=== PATIENT | female | born 1940 | race Caucasian/White ===

== ENCOUNTER 2024-05-08 15:34 | Emergency (ER) | payer MEDICARE, BC, SELFPAY ==
[2024-05-08] VITALS (25 sets, daily range): BP systolic 130–164; BP diastolic 57–99; PULSE 63–83; RESP 14–16; TEMP 36.8; O2SAT 92–97; BMI 34.7
--- NOTE | 2024-05-08 15:55 | ED_ITS ---
HPI - General Adult General Time Seen by Provider: 15:55 Date Seen: 05/08/24 Chief complaint: Dizziness/Vertigo Stated complaint: dizzy and nauseous, thinks she has vertigo. Time Seen by Provider: 05/08/24 15:38 Source: patient and RN notes reviewed Mode of arrival: ambulatory Limitations: no limitations History of Present Illness HPI narrative: This 83-year-old female is coming in with ongoing vertigo. She has had symptoms since this last Saturday, today is Saturday. She went to [place] [facility] on Saturday. She states they diagnosed with dehydration, give her IV fluids, did blood work and did an EKG. She states they did not do any head imaging. She notes that 07/09/2023 she was in with vertigo as well, had head imaging then. She did follow up with her primary care on Saturday, physical therapy request was put in but she has not been able to attend. She states she is taking meclizine since Saturday 3 times a day scheduled. She still has ongoing nausea, she has spinning with movement. She has not been sick with anything, no trauma. She baseline has ringing in her ears but has not changed. No cough or cold symptoms, no fevers or chills. No chest pain or irregular heartbeat noted. No other neurologic changes with this. She does note after eating she did feel nauseated. She is still experiencing the spinning or dizziness with movement. She feels the meclizine has helped but it is still present. She states her doctor took her off hydrochlorothiazide, put her on losartan and had her take Claritin. Related Data Home Medications ?Medication ?Instructions ?Recorded ?Confirmed amlodipine 5 mg tablet 5 mg PO DAILY 05/08/24 05/08/24 aspirin 81 mg tablet,delayed 81 mg PO DAILY 05/08/24 05/08/24 release atorvastatin 20 mg tablet 20 mg PO DAILY 05/08/24 05/08/24 citalopram 10 mg tablet (Celexa) 10 mg PO DAILY 05/08/24 05/08/24 loratadine-pseudoephedrine ER 10 1 tab PO DAILY 05/08/24 05/08/24 mg-240 mg tablet,extended [id number] (AllerClear D-24hr) losartan 25 mg tablet 25 mg PO DAILY 05/08/24 05/08/24 potassium 20 mg chewable tablet mg PO 05/08/24 ramipril 10 mg capsule 10 mg PO DAILY 05/08/24 05/08/24 Previous Rx's ?Medication ?Instructions ?Recorded diazepam 2 mg tablet (Valium) 2 mg PO TID #9 tabs 05/08/24 Allergies Allergy/AdvReac Type Severity Reaction Status Date / Time latex Allergy Mild Verified 05/08/24 15:52 Penicillins Allergy Mild Verified 05/08/24 15:52 Review of Systems Status of ROS: Reports: 6 or more systems reviewed and unremarkable except as noted in History and below [facility] Social History Smoking Status: Former smoker What tobacco products do you use: cigarettes Smoking packs per day: 0.5 Smoking cigarettes per day: 10.0 Years smoked: 20 Smoking pack-years: 10.00 Smoking quit date/years: >15 years ago Do you use any of these nicotine containing products: None Second hand tobacco smoke exposure: No How often do you have a drink containing alcohol: never AUDIT-C Alcohol total score: 0 Non-prescribed substance use: denies use service: No Exam Const: Vital Signs, click to edit/add: Vital Signs - 24 hr 05/08/24 15:41 05/08/24 16:03 Temperature 98.3 F Pulse Rate [Pulse Oximeter] 80 Respiratory Rate 14 Blood Pressure [Le ft Upper Arm] 164/81 H Pulse Oximetry 95 97 This 83-year-old female is alert, interactive, no apparent distress. She is seen in exam room 8, sitting up in the bed. Pupils are equal round reactive, extraocular muscles intact but there is definite right beating nystagmus. TMs canals with normal landmarks, light reflects, normal translucency, no abnormalities noted. Symmetrical facial function, speech is normal. Neck supple, no adenopathy, no jugular venous distension, no thyromegaly masses or nodules. Lungs are clear, breathing easy on room air, no wheezing or crackles. CV regular rate and rhythm, no murmur, normal S1-S2, no S3-S4. Abdomen is soft, nontender, nondistended, no organomegaly. Strength is 5/5 and symmetric, no tremors, no arm drift. Sensation is normal throughout. Documenting provider has reviewed patient's vital signs: yes Course Course ED Course: As a cannot see any records on this patient, I am going to do noncontrast head CT. Will put an IV in, draw electrolytes and basic blood work including thyroid. Again, I cannot see if her thyroid is been tested recently. Will check labs, have her on cardiac monitoring, pulse oximetry. Will get an EKG as well. Doubt arrhythmia. The seems like it is vertigo but not just benign po sitional vertigo. Once we have some of our labs back and head CT, will likely talk to Stroke Neuro at [facility]. Reevaluation(s) Time of Reevaluation #1: 19:36 Reevaluation #1: The patient was up to the bathroom with walker, felt absolutely fine walking, did not feel to woozy or unsteady. She actually does feel better. She was wondering about staying in the hospital. Reviewed with her that this is likely a longer-term vestibular issue and she may have this for days, possibly even weeks. She did ambulate quite well to the bathroom, there was no concerns and she herself admits that she felt good, do think it is reasonable for her to try to go home. The Valium is not bothering her. Consultations Consultation #1: Have spoken with stroke neurologist Dr. Ardon from [facility]. We have reviewed the case. She agrees that the nystagmus does seem to be a peripheral pattern and given the length would be something like vestibulitis. She does agree that she would consider doing an MRI if the patient has never had one but does not need to be urgent given the length of symptoms. She agrees with a trial of some oral Valium as it would be much more effective in treating this than meclizine. She would have me do CT angio imaging just to ensure no vessel loss with this. She otherwise would agree that the patient does need outpatient physical therapy. Will review with the patient that were going to do CT angio imaging, will try low-dose oral Valium at 2.5 mg if she is willing. Will talk to the patient now. Time: 17:36 Vital Signs Vital signs: Initial Vital Signs Temperature 98.3 F 05/08/24 15:41 Temperature Source Temporal Artery Scan 05/08/24 15:41 Pulse Rate 80 05/08/24 15:41 Respiratory Rate 14 05/08/24 15:41 Blood Pressure 164/81 H 05/08/24 15:41 Blood Pressure Mean 108 H 05/08/24 15:41 Blood Pressure Position Sitting 05/08/24 15:41 Pulse Oximetry 95 05/08/24 15:41 Vital Signs Temperature 98.3 F 05/08/24 15:41 Pulse Rate 80 05/08/24 15:41 Respiratory Rate 14 05/08/24 15:41 Blood Pressure 164/81 H 05/08/24 15:41 Pulse Oximetry 95 05/08/24 15:41 Temperature 98.3 F 05/08/24 15:41 Pulse Rate 80 05/08/24 15:41 Respiratory Rate 14 05/08/24 15:41 Blood Pressure 164/81 H 05/08/24 15:41 Pulse Oximetry 97 05/08/24 16:03 Medications Administered Medications: Discontinued Medications Generic Name Dose Route Start Last Admin Trade Name Keo PRN Reason Stop Dose Admin Diazepam 2.5 mg 05/08/24 17:49 05/08/24 18:02 Diazepam 5 Mg Tablet PO 05/08/24 17:50 2.5 mg ONCE ONE Administration Sodium Chloride 500 mls @ 500 mls/hr 05/08/24 16:02 05/08/24 18:03 0.9 % Sodium Chloride 500 Ml IV 05/08/24 17:01 500 mls/hr .Q1H ONE Administration Medical Decision Making Medical Records Medical records narrative: Did attempt to look patient up in [facility] but there are no records available on her. Lab Data Lab results reviewed: Yes I reviewed the patient's lab results Labs: Lab Results 05/08/24 Range/Units 16:10 WBC 8.17 (4.50-11.00) K/uL RBC 5.00 (4.00-5.20) m/uL Hgb 14.6 (12.0-16.0) gm/dL Hct 43.2 (33.0-51.0) % MCV 86 (80-100) fL MCH 29 (26-34) pg MCHC 34 (32-36) gm/dL RDW Coeff of Darlene 12.9 (11.5-15.5) % Plt Count 309 (140-440) K/uL Neut % (Auto) 61.0 (42.0-72.0) % Lymph % (Auto) 29.0 (20-44) % Evangeline % (Auto) 8.2 (0.0-11.0) % Eos % (Auto) 1.3 (0.0-7.0) % Baso % (Auto) 0.4 (0.0-3.0) % Neut # (Auto) 4.98 (1.7-7.0) K/uL Lymph # (Auto) 2.37 (0.90-2.90) K/uL Evangeline # (Auto) 0.70 (0.00-0.90) K/UL Eos # (Auto) 0.11 (0.00-0.50) K/uL Baso # (Auto) 0.03 (0.00-0.30) K/uL Abs Immat Gran (auto) 0.01 (0.00-0.30) K/uL Imm/Tot Granulo (auto) 0.1 % Sodium 133 L (135-149) mmol/L Potassium 4.0 (3.6-5.1) mmol/L Chloride 98 (96-114) mmol/L Carbon Dioxide 27 (20-32) mmol/L Anion Gap 8 (7-15) mEq/L BUN 14 (7-30) mg/dL Creatinine 0.8 (0.5-1.5) mg/dL Estimated Creat Clear 36.81 Estimated GFR 73 ml/min Glucose 103 (60-115) mg/dL Calcium 9.8 (8.4-10.6) mg/dL Magnesium 2.1 (1.5-2.6) mg/dL Total Bilirubin 0.7 (0.1-1.5) mg/dL AST 20 (12-35) U/L ALT 19 (4-35) U/L Alkaline Phosphatase 84 (40-150) U/L Total Protein 7.4 (6.0-8.3) g/dL Albumin 4.6 (3.3-5.0) g/dL TSH 3.160 (0.270-4.200) uIU/mL Imaging Data CT scan - head: Attestation: I have reviewed the pertinent imaging results. Radiologist's impression: Patient: ANISHA AGUIRRE Facility:?[facility] Patient ID:?[id number] Site Patient ID:?[id number]. Site :?[id number] Study:?CT-Head WITHOUT-05/08/2024 4:30:39 PM Ordering Physician:?Ezequiel Danielson Final Report: INDICATION: VERTIGO FOR 5 DAYS COMPARISON: None TECHNIQUE: CT of the head without contrast. FINDINGS: Brain Parenchyma: Global cortical involutional changes. No acute infarct, acute intracranial hemorrhage, mass effect, or midline shift. Periventricular and supraventricular white matter hypodensity, suggestive of chronic microvascular ischemic changes. Ventricles: Mild ventricular enlargement, commensurate with the degree of cortical involutional changes and sulcal prominence. Extra-axial Spaces: No abnormal fluid collection. Paranasal sinuses: No significant mucosal thickening. Orbits: Unremarkable Mastoid Sinuses: Unremarkable Cranium: No acute fracture. 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 Please note that all CT scans at this facility use dose modulation, iterative reconstruction, and/or weight-based dosing when appropriate to reduce radiation dose to as low as reasonably achievable. Dictated by Hugo Ferro MD @ 05/08/2024 4:52:43 PM (Electronic Signature) CT- Other: Attestation: I have reviewed the pertinent imaging results. Radiologist's impression: Patient: ANISHA AGUIRRE Facility:?[facility] Patient ID:?[id number] Site Patient ID:?[id number]. Site :?[id number] Study:?CT-Neck Angio w/iv-05/08/2024 6:31:01 PM Ordering Physician:?Ezequiel Danielson Preliminary Report: No large vessel occlusion, significant arterial stenosis, or intracranial aneurysm. Read by:Arianna Suazo MD @05/08/2024 6:50:38 PM Patient: ANISHA AGUIRRE Facility:?[facility] Patient ID:?[id number] Site Patient ID:?[id number]. Site :?[id number] Study:?CT-Head Angio w/iv-05/08/2024 6:31:24 PM Ordering Physician:?Ezequiel Danielson Preliminary Report: CTA Head: No large vessel occlusion, significant arterial stenosis, or intracranial aneurysm. CTA neck: No arterial dissection. Atherosclerotic calcification at the carotid bifurcations with mild <50% of the left proximal ICA. Two 6mm left upper lobe pulmonary nodules. Per Fleischner criteria, 12 month follow up of patient is high risk. 1.6 cm right thyroid nodule. Recommend further ultrasound characterization if not already performed. Read by:?Bola Suazo MD @05/08/2024 6:53:56 PM ECG Data Attestation: I personally reviewed and interpreted this ECG as follows: (Normal sinus rhythm with sinus arrhythmia, 64 beats per minute. Right bundle branch b lock. Lateral Q-waves without any acute ST or T-wave change.) Prior ECG tracings: not available for review Discharge Plan Discharge Clinical Impression: Acute vestibular neuronitis Qualifiers: Laterality: right Qualified Code(s): H81.21 - Vestibular neuronitis, right ear Patient Disposition: Home, Self-Care Condition: Stable Instructions: Vertigo (ED) Additional Instructions: Do need to complete your vestibular physical therapy as scheduled prior. Can use meclizine overnight tonight if needed until you get the Valium from the pharmacy. Do need to follow-up with your primary care provider next week. It was recommended by Neurology if you have not had an MRI sent you started with the vertigo, it is recommended that you have a brain MRI noncontrast. This is just to ensure no underlying problems in the brain causing the vertigo. Your exam and history is consistent with peripheral vertigo but not just benign positional vertigo. Activity Level: Activity as Tolerated Prescriptions: New diazepam [Valium] 2 mg tablet 2 mg PO TID Qty: 9 0RF No Action AllerClear D-24hr 10-240 mg tablet extended release 24 hr 1 tab PO DAILY losartan 25 mg tablet 25 mg PO DAILY aspirin 81 mg tablet,delayed release (DR/EC) 81 mg PO DAILY potassium 20 mg tablet,chewable PO atorvastatin 20 mg tablet 20 mg PO DAILY citalopram [Celexa] 10 mg tablet 10 mg PO DAILY amlodipine 5 mg tablet 5 mg PO DAILY ramipril 10 mg capsule 10 mg PO DAILY Follow Up/Referrals: Provider,Not a Local [Non-Staff] - Stand Alone Forms: [facility] Info Instructions
--- NOTE | 2024-05-08 16:08 | CRLHL7_ITS ---
For Patients: As a result of the Cures Act, medical imaging exams and procedure reports are released immediately into your electronic medical record. You may view this report before your referring provider. If you have questions, please contact your health care provider. INDICATION: VERTIGO FOR 5 DAYS COMPARISON: None TECHNIQUE: CT of the head without contrast. FINDINGS: Brain Parenchyma: Global cortical involutional changes. No acute infarct, acute intracranial hemorrhage, mass effect, or midline shift. Periventricular and supraventricular white matter hypodensity, suggestive of chronic microvascular ischemic changes. Ventricles: Mild ventricular enlargement, commensurate with the degree of cortical involutional changes and sulcal prominence. Extra-axial Spaces: No abnormal fluid collection. Paranasal sinuses: No significant mucosal thickening. Orbits: Unremarkable Mastoid Sinuses: Unremarkable Cranium: No acute fracture. 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 Please note that all CT scans at this facility use dose modulation, iterative reconstruction, and/or weight-based dosing when appropriate to reduce radiation dose to as low as reasonably achievable. Dictated by Hugo Ferro MD @ 05/08/2024 4:52:43 PM (Electronically Signed)
[2024-05-08 16:20] LABS: Basophils Absolute Auto 0.03 K/uL (0.00-0.30); Basophils Percent Auto 0.4 % (0.0-3.0); Eosinophils Absolute Auto 0.11 K/uL (0.00-0.50); Eosinophils Percent Auto 1.3 % (0.0-7.0); Hematocrit 43.2 % (33.0-51.0); Hemoglobin* 14.6 gm/dL (12.0-16.0); Immature Granulocytes Abs Auto 0.01 K/uL (0.00-0.30); Immature Granulocytes Pct Auto 0.1 %; Lymphocytes Absolute Auto 2.37 K/uL (0.90-2.90); Mean Corpuscular HGB Conc 34 gm/dL (32-36); Mean Corpuscular Hemoglobin 29 pg (26-34); Mean Corpuscular Volume 86 fL (80-100); Monocytes Percent Auto 8.2 % (0.0-11.0); Neutrophils Absolute Auto 4.98 K/uL (1.7-7.0); Platelet Count* 309 K/uL (140-440); RDW Coefficient of Variation % 12.9 % (11.5-15.5); White Blood Count* 8.17 K/uL (4.50-11.00)
--- OUTSIDE RECORDS SUMMARY | 2024-05-08 16:27 | XMS_ITS | Encounter Summary ---
Author Organization [facility] er Address [address] [place] [address] Care Team Providers Care Internet Marketer Name Role Phone Freda Rollins APRN Primary Care Provider Encounter Details Date Type Department Care Team (Late st Contact Info) Description 08/20/2023 Telephone [facility] 52 Sleep Medicine [address] [address] Lee Diaz MD Social History Tobacco Use Types Packs/Day Years Used Date Smoking Tobacco: Former Smokeless Tobacco: Never Alcohol Use Standard Drinks/Week Comments Yes 7 (1 standard drink = 0.6 oz pur e alcohol) Humiliation, Afraid, Rape, and Kick questionnair e Answer Date Recorded Within the last year, have y ou been afraid of your partner or ex-partner? No 10/14/2022 Within the last year, have y ou been humiliated or emotionally abused in other ways by your partner or ex-partner? No Within the last year, have y ou been kicked, hit, slapped, or otherwise physically hurt by your partner or ex-partner? No 10/14/2022 Within the last year, have y ou been raped or forced to have any kind of sexual activity by your partner or ex-partner? No 10/14/2022 Social Connection and Isolat ion Panel [NHANES] Answer Date Recorded In a typical week, how many times do you talk on the phone with family, friends, or neighbors? More than three times a week 10/14/2022 How often do you get togethe r with friends or relatives? Twice a week 10/14/2022 How often do you attend chur ch or sikh services? More than 4 times per year 10/14/2022 Do you belong to any clubs o r organizations such as jewish groups, unions, fraternal or athletic groups, or school groups? No 10/14/2022 Attends Club or Organization Meetings Not on jorge e 10/14/2022 Are you , , di vorced, , never , or living with a partner? 10/14/2022 AUDIT-C Answer Date Recorded Frequency of Alcohol Consumption Not on file 10/14/2022 Q2: How many drinks containi ng alcohol do you have on a typical day when you are drinking? 1 or 2 10/14/2022 Q3: How often do you have si x or more drinks on one occasion? Never 10/14/2022 Overall Financial Resource Strain (CARDIA) Answe r Date Recorded How hard is it for you to pa y for the very basics like food, housing, medical care, and heating? Not hard at all 10/14/2022 PHQ-2 Answer Date Recorded PHQ-9 Total Score 2 10/14/2022 [facility] - Occupational Stress Questionnaire Answer Date Recorded Do you feel stress - tense, restless, nervous, or anxious, or unable to sleep at night because your mind is troubled all the time - these days? Only a little 10/14/2022 Exercise Vital Sign Answer Date Recorde d On average, how many days pe r week do you engage in moderate to strenuous exercise (like a brisk walk)? 0 days 10/14/2022 On average, how many minutes do you engage in exercise at this level? 0 min 10/14/2022 Hunger Vital Sign Answer Date Recorded Within the past 12 months, y ou worried that your food would run out before you got the money to buy more. Never true 10/15/19 23 Within the past 12 months, t he food you bought just didn't last and you didn't have money to get more. Never true 10/14/2022 PRAPARE - Transportation Answer Date Re corded In the past 12 months, has l ack of transportation kept you from medical appointments or from getting medications? No 09/29 In the past 12 months, has l ack of transportation kept you from meetings, work, or from getting things needed for daily living? No 10/14/2022 Housing Stability Vital Sign Answer Byron e Recorded In the last 12 months, was t here a time when you were not able to pay the mortgage or rent on time? No 10/14/2022 In the last 12 months, how many places have you lived? 2 10/14/2022 In the last 12 months, was t here a time when you did not have a steady place to sleep or slept in a m[facility]p (including now)? No 10/14/2022 Comments Unknown Sex and Gender Information Value Date Recorded Sex Assigned at Not on file Legal Sex Female 7:46 PM CDT Gender Identity Not on file Sexual Orientation Not on file documented as of this encounter Miscellaneous Notes * Telephone Encounter - Carmen Sandra MA - 08/21/2023 4:19 PM CDT Called and spoke to patient remotely changed setting to 10-20 cm of water , ramp on auto and EPR 3 * Telephone Encounter - Lee Diaz MD - 08/20/2023 4:00 PM CDT Please change the pressure to auto CPAP 10-20 with automatic ramp and EPR of 3, please obtain download in 2 weeks from now. * Telephone Encounter - Carmen Sandra MA - 08/20/2023 2:58 PM CDT There is document on desk for relating to this message order has been pended for in case you would like to change Pressure setting. documented in this encounter Plan of Treatment Upcoming Encounters Date Type Department Care Team (Late st Contact Info) Description 05/14/2024 10:40 AM FORGING DIE FINISHER Office Visit [place] [address] [facility] [address] [place] [address] Jose Villagran MD [address] [place] [address] documented as of this encounter Visit Diagnoses Not on filedocumented in this encounter Care Teams Internet Marketer Relationship Specialty Start Date End Date Freda Rollins, VETERINARIAN ASSISTANT [address] [place] [id number] PCP - General 01/17/23 documented as of this encounter
--- OUTSIDE RECORDS SUMMARY | 2024-05-08 16:27 | XMS_ITS | Encounter Summary ---
Author Organization [facility] er Address [address] [place] [address] Care Team Providers Care Produce Weigher Name Role Phone Freda Rollins APRN Primary Care Provider Reason for Visit * Reason Onset Date Comments FYI - Order 03/16/2024 Encounter Details Date Type Department Care Team (Late st Contact Info) Description 03/16/2024 Telephone [place] [address] [place] [address] Freda Rollins PROJECT MANAGER FINANCE [address] [place] [id number] FYI - Order Social History Tobacco Use Types Packs/Day Years Used Date Smoking Tobacco: Former Smokeless Tobacco: Never Alcohol Use Standard Drinks/Week Comments Yes 7 (1 standard drink = 0.6 oz pur e alcohol) B1300 Health Literacy Answer Date Recor ded How often do you need to hav e someone help you when you read instructions, pamphlets, or other written material from your doctor or pharmacy? Rarely 04/08/2024 [facility] Utilities Answer Date Recorded In the past 12 months has e electric, gas, oil, or water company threatened to shut off services in your home? No 04/08/2024 Humiliation, Afraid, Rape, and Kick questionnair e Answer Date Recorded Within the last year, have y ou been afraid of your partner or ex-partner? No 04/08/2024 Within the last year, have y ou been humiliated or emotionally abused in other ways by your partner or ex-partner? No Within the last year, have y ou been kicked, hit, slapped, or otherwise physically hurt by your partner or ex-partner? No 04/08/2024 Within the last year, have y ou been raped or forced to have any kind of sexual activity by your partner or ex-partner? No 04/08/2024 Social Connection and Isolat ion Panel [NHANES] Answer Date Recorded In a typical week, how many times do you talk on the phone with family, friends, or neighbors? More than three times a week 04/08/2024 How often do you get togethe r with friends or relatives? Twice a week 04/08/2024 How often do you attend [facility] or nondenominational services? More than 4 times per year 04/08/2024 Do you belong to any clubs o r organizations such as confucianism groups, unions, fraternal or athletic groups, or school groups? No 04/08/2024 How often do you attend meet ings of the clubs or organizations you belong to? Never 04/08/2024 Are you , , di vorced, , never , or living with a partner? 04/08/2024 AUDIT-C Answer Date Recorded Q1: How often do you have a drink containing alc ohol? Monthly or less 04/08/2024 Q2: How many drinks containi ng alcohol do you have on a typical day when you are drinking? 1 or 2 04/08/2024 Q3: How often do you have si x or more drinks on one occasion? Never 04/08/2024 Overall Financial Resource Strain (CARDIA) Answe r Date Recorded How hard is it for you to pa y for the very basics like food, housing, medical care, and heating? Not very hard 04/08/2024 PHQ-2 Answer Date Recorded PHQ-9 Total Score 0 04/08/2024 [facility] [place] [facility] Occup[facility] - Occupational Stress Questionnaire Answer Date Recorded Do you feel stress - tense, restless, nervous, or anxious, or unable to sleep at night because your mind is troubled all the time - these days? Only a little 04/08/2024 Exercise Vital Sign Answer Date Recorde d On average, how many days pe r week do you engage in moderate to strenuous exercise (like a brisk walk)? 0 days 04/08/2024 On average, how many minutes do you engage in exercise at this level? 0 min 04/08/2024 Hunger Vital Sign Answer Date Recorded Within the past 12 months, y ou worried that your food would run out before you got the money to buy more. Never true 04/08/19 25 Within the past 12 months, t he food you bought just didn't last and you didn't have money to get more. Never true 04/08/2024 PRAPARE - Transportation Answer Date Re corded In the past 12 months, has l ack of transportation kept you from medical appointments or from getting medications? No 10/2024 In the past 12 months, has l ack of transportation kept you from meetings, work, or from getting things needed for daily living? No 04/08/2024 Housing Stability Vital Sign Answer Byron e [...] place to sleep or slept in a penitentiary (including now)? No 10/14/2022 Housing Stability Vital Sign Answer Byron e Recorded In the last 12 months, was t here a time when you were not able to pay the mortgage or rent on time? No 04/08/2024 In the past 12 months, how m any times have you moved where you were living? 0 04/08/2024 At any time in the past 12 m [facility], were you homeless or living in a penitentiary (including now)? No 04/08/2024 Interpersonal Safety Questionnaire Answer Date Recorded How often does anyone, annette marie family and friends, physically hurt you? Never 04/08/2024 How often does anyone, annette marie family and friends, insult or talk down to you? Never 04/08/2024 How often does anyone, annette marie family and friends, threaten you with harm? Never 04/08/2024 How often does anyone, inclu ding family and friends, threaten you with harm? Never 04/08/2024 Comments Unknown Sex and Gender Information Value Date Recorded Sex Assigned at Not on file Legal Sex Female 7:46 PM CDT Gender Identity Not on file Sexual Orientation Not on file documented as of this encounter Miscellaneous Notes * Telephone Encounter - Hannah Foley - 03/16/2024 4:04 PM CST Faxed order to [facility] in [place]. [phone] METER REPAIR SUPERVISOR documented in this encounter Plan of Treatment Upcoming Encounters Date Type Department Care Team (Late st Contact Info) Description 05/14/2024 10:40 AM GAS METER REPAIR SUPERVISOR Office Visit [place] [address] [facility] [address] [place] [address] Jose Villagran MD [address] [place] [phone] documented as of this encounter Visit Diagnoses Not on filedocumented in this encounter Care Teams Produce Weigher Relationship Specialty Start Date End Date Freda Rollins APRN [address] [place] [phone] PCP - General 01/17/23 documented as of this encounter
--- OUTSIDE RECORDS SUMMARY | 2024-05-08 16:27 | XMS_ITS | Encounter Summary ---
Author Organization [facility] er Address [address] [place] [address] Care Team Providers Care Bookmobile Librarian Name Role Phone Freda Rollins APRN Primary Care Provider Encounter Details Date Type Department Care Team (Late st Contact Info) Description 04/21/2024 Orders Only [place] [address] [place] [address] Ivelisse Rea RN [address] [place] [address] Dizziness; RBBB; Essential (primary) hypertension; GENE (obstructive sleep apnea) Social History Tobacco Use Types Packs/Day Years [...] from your doctor or pharmacy? Rarely 04/08/2024 [facility] Utilities Answer Date Recorded In the [...] week 04/08/2024 How often do you attend chur or yazidi services? More than 4 times per year 04/08/2024 Do you belong to any clubs o r organizations such as anabaptism groups, unions, fraternal or athletic groups, or [...] Date Recorded PHQ-9 Total Score 0 04/08/2024 [facility] [place] [facility] Occupat ional Health - Occupational Stress [...] in a [facility] (including now)? No 10/14/2022 Housing Stability Vital Sign Answer Byron e Recorded In the last 12 months, was t here a time when you were not able to pay the mortgage or rent on time? No 04/08/2024 In the past 12 months, how m any times have you moved where you were living? 0 04/08/2024 At any time in the past 12 m [facility], were you homeless or living in a [facility] (including now)? No 04/08/2024 Interpersonal Safety Questionnaire Answer Date Recorded How often does anyone, annette marie family and friends, physically hurt you? Never 04/08/2024 How often does anyone, annette mraie family and friends, insult or talk down to you? Never 04/08/2024 How often does anyone, annette marie family and friends, threaten you with harm? Never 04/08/2024 How often does anyone, annette marie family and friends, threaten you with harm? Never 04/08/2024 Comments Unknown Sex and Gender Information Value Date Recorded Sex Assigned at Not on file Legal Sex Female 7:46 PM CDT Gender Identity Not on file Sexual Orientation Not on file documented as of this encounter Plan of Treatment Upcoming Encounters Date Type Department Care Team (Late st Contact Info) Description 05/14/2024 10:40 AM METER SETTER Office Visit [place] [address] [place] [address] Jose Villagran MD [address] [place] [phone] documented as of this encounter Procedures Procedure Name Priority Date/Time Associated Diagnosis Comments HOLTER MONITOR - 48 HOUR Routine 04/10/2024 Dizziness RBBB Essential (primary) hypertension GENE (obstructive sleep apnea) documented in this encounter Results * Holter monitor - 48 hour (04/10/2024) us Jose Villagran MD [facility] [place] OCEDURES Final Result [facility] documented in this encounter Visit Diagnoses Diagnosis Dizziness Dizziness and giddiness RBBB Essential (primary) hypertension Unspecified essential hypertension GENE (obstructive sleep apnea) Obstructive sleep apnea (adult) (pediatric) documented in this encounter Care Teams Bookmobile Librarian Relationship Specialty Start Date End Date Freda Rollins APRN [address] [place] [id number] PCP - General 01/17/23 documented as of this encounter
--- OUTSIDE RECORDS SUMMARY | 2024-05-08 16:27 | XMS_ITS | Encounter Summary ---
Author Organization [facility] er Address [address] [place] [address] Care Team Providers Care Insurance Clerk Name Role Phone Freda Rollins APRN Primary Care Provider Reason for Referral * Consultation (Routine) - Authorized Specialty Diagnoses / Procedures Referred By Elham zapata Referred To Contact Cardiology Diagnoses Dizziness Acute pain of left shoulder Acute electrocardiogram changes Freda Rollins APRN [address] [place] [address] Phone: tel: fax: CARDIOLOGY [address] [place] [address] Phone: tel: fax: Referral ID Status Reason Start Date Expiration Date Visits Requested Visits Authorized [id number] Authorized Specialty Services Required 04/08/2024 04/09/2025 1 1 Scheduling Instructions Please call the Coater Operator desk at [phone] ext. [phone] to schedule an appointment. MACY SERVICE ASSOCIATE Reason for Visit * Reason Comments Blood Pressure Review Encounter Details Date Type Department Care Team (Late st Contact Info) Description 04/08/2024 10:00 AM PHARMACY SERVICE ASSOCIATE Office Visit [facility] [address] [place] [address] Freda Rollins APRN [address] [place] [id number] Dizziness (Primary Dx); Generalized anxiety disorder; Acute pain of left shoulder; Venous insufficiency of both lower extremities; Acute electrocardiogram changes Social History Tobacco Use Types Packs/Day Years [...] from your doctor or pharmacy? Rarely 04/08/2024 [facility] Utilities Answer Date Recorded In the past 12 months has e electric, gas, oil, or water theDrop threatened to shut off services in your [...] 04/08/2024 How often do you attend chur ch or jain services? More than 4 times per year 04/08/2024 Do you belong to any clubs o r organizations such as baptist groups, unions, fraternal or athletic groups, or [...] Date Recorded PHQ-9 Total Score 0 04/08/2024 [facility] - Occupational Stress [...] place to sleep or slept in a half-way (including now)? No 10/14/2022 Housing Stability Vital Sign Answer Byron e Recorded In the last 12 months, was t here a time when you were not able to pay the mortgage or rent on time? No 04/08/2024 In the past 12 months, how m any times have you moved where you were living? 0 04/08/2024 At any time in the past 12 m [facility], were you homeless or living in a half-way (including now)? No 04/08/2024 Interpersonal Safety Questionnaire [...] on file documented as of this encounter Last Filed Vital Signs Vital Sign Reading Time Taken Comments Blood Pressure 136/64 04/08/2024 12:51 PM PHARMACY SERVICE ASSOCIATE Pulse 62 04/08/2024 10:03 AM PHARMACY SERVICE ASSOCIATE Temperature 36.6 C (97.9 F) 04/08/2024 9:58 AM PHARMACY SERVICE ASSOCIATE Respiratory Rate 16 04/08/2024 9:58 AM PHARMACY SERVICE ASSOCIATE Oxygen Saturation 95% 04/08/2024 9:58 AM PHARMACY SERVICE ASSOCIATE Inhaled Oxygen Concentration - - Weight 93.3 kg (205 lb 9.6 oz) 04/08/2024 9:58 A M PHARMACY SERVICE ASSOCIATE Height - - Body Mass Index 34.67 10/25/2023 10:55 AM CDT documented in this encounter Progress Notes * Freda Rollins APRN - 04/08/2024 10:00 AM CST Subjective Patient ID: Lupis Narayan is a 83 y.o. female. Chief Complaint Patient presents with Blood Pressure Review Lupis presents today with a 2 day concern of left arm pain. Rates it as a achy pain on/off for thepast two days. She has not done anything out of the normal that would cause this pain. She also hada episode of dizziness this past Saturday that lasted about 12-20 minutes. She tool a Meclizine andfound this to be helpful. She also has a episode of dizziness yesterday but it only lasted a few seconds. Lupis also stated her blood pressures have been higher this past weekend. States they were running 160's/90's. And today, blood pressures was 160's/100's when she woke up. She then took her blood pressure medication and retook blood pressure 30 minutes later and it was 150's/90's. Lupis was also in to see us the middle of March with left lower leg pain. JUANI stockings were ordered and faxed to [facility]. Lupis states she has not heard anything from [employer]. A provider reviewed the following portions of the patient's chart in this encounter and updated as appropriate: Tobacco Allergies Meds Problems Med Hx Surg Hx Fam Hx Review of Systems Constitutional: Negative. Negative for fatigue and fever. HENT: Negative. Negative for congestion, rhinorrhea, sore throat and trouble swallowing. Eyes: Negative. Respiratory: Negative. Negative for cough, chest tightness, shortness of breath and wheezing. Cardiovascular: Negative. Negative for chest pain, palpitations and leg swelling. Gastrointestinal: Negative. Negative for abdominal pain, constipation, diarrhea, nausea and vomiting. Endocrine: Negative. Genitourinary: Negative. Negative for dysuria, frequency and urgency. Musculoskeletal: Positive for arthralgias (Left arm pain for the past two days). Negative for gait problem and joint swelling. Skin: Negative. Negative for color change and rash. Allergic/Immunologic: Negative. Neurological: Positive for dizziness. Negative for speech difficulty, numbness and headaches. Hematological: Negative. Psychiatric/Behavioral: Negative. Negative for agitation, behavioral problems, confusion, self-injury, sleep disturbance and suicidal ideas. The patient is not nervous/anxious. Objective Physical Exam Constitutional: Appearance: Normal appearance. She is well-developed and well-groomed. HENT: Head: Normocephalic. Right Ear: Hearing, tympanic membrane, ear canal and external ear normal. Left Ear: Hearing, tympanic membrane, ear canal and external ear normal. Nose: Nose normal. Mouth/Throat: Lips: [place]. Mouth: Mucous membranes are moist. Pharynx: Oropharynx is clear. Eyes: Extraocular Movements: Extraocular movements intact. Conjunctiva/sclera: Conjunctivae normal. Pupils: Pupils are equal, round, and reactive to light. Cardiovascular: Rate and Rhythm: Normal rate and regular rhythm. Pulses: Normal pulses. Heart sounds: Normal heart sounds. Pulmonary: Effort: Pulmonary effort is normal. Breath sounds: Normal breath sounds and air entry. Abdominal: General: Bowel sounds are normal. Palpations: Abdomen is soft. Musculoskeletal: General: Normal range of motion. Cervical back: Normal range of motion and neck supple. Skin: General: Skin is warm. Neurological: General: No focal deficit present. Mental Status: She is alert and oriented to person, place, and time. Psychiatric: Attention and Perception: Attention and perception normal. Mood and Affect: Mood is anxious. Speech: Speech normal. Behavior: Behavior normal. Behavior is cooperative. Thought Content: Thought content normal. Cognition and Memory: Cognition and memory normal. Judgment: Judgment normal. Comments: Ilsa was slightly anxious at today's visit. She is concerned, thinking some thing is wrong with her heart because of the dizziness and left shoulder pain. After rechecks of blood pressure,blood pressure manually are 135/64 and 132/62. When asking Ilsa if anything is causing her anxiety, she stated that she does not like to go outside because she is afraid that she may fall. She states that her daughter that lived in town, just went down south for the winter. She has two other children but they also live other states. Ilsa states her sister is in town but not doing so well herself. She also states, she is working on a puzzle her daughter gave her and she hates puzzles. Assessment/Plan Problem List Items Addressed This Visit Cardiac and Vasculature Venous insufficiency of both lower extremities Call [facility] to see about JUANI Wright DME order printed off and given to Ilsa. DME order was faxed to [facility]. Mental Health Anxiety disorder Psychological condition is unsure, Ilsa feels like it is going okay but does have some small stressors going on right now . Continue current treatment regimen. Regular aerobic exercise. Psychological condition will be reassessed at the next regular appointment. Continue Citalopram 10 mg daily Start daily walks/exercises Weight loss can also help, even a few pounds If symptoms do not improve, follow up. Will adjust Citalopram or add on a medication Musculoskeletal and Injuries Shoulder pain Tylenol/Ibuprofen for pain Heat/Ice to left shoulder Topical pain relieving creams/patches Range of motion exercises Follow up if symptoms worsen or do not feel better after treatment Relevant Orders ECG 12 lead Basic metabolic panel (Completed) NT-proBNP CBC Branch Off w/Diff (Completed) TSH Hemoglobin A1c Symptoms and Signs Dizziness - Primary EKG completed, Labs ordered Take it easy from getting up from a lying down or sitting position Increase water intake, eat a variety of healthy foods from lean meats, vegetables and fruits Continue Meclizine 25 mg as needed for dizziness Relevant Medications meclizine (ANTIVERT) 25 MG tablet MACY SERVICE ASSOCIATE * Yaneth Patel RN - 04/08/2024 10:00 AM CST EKG performed at today's clinic visit. Order released, and results scanned to cardiology for interpretation. MACY SERVICE ASSOCIATE documented in this encounter Miscellaneous Notes * Assessment & Plan Note - Freda Rollins APRN - 04/08/2024 1:07 PM PHARMACY SERVICE ASSOCIATE Associated Problem(s): Acute electrocardiogram changes Referral placed to cardiology MACY SERVICE ASSOCIATE * Assessment & Plan Note - Freda Rollins APRN - 04/08/2024 1:05 PM PHARMACY SERVICE ASSOCIATE Associated Problem(s): Anxiety disorder Psychological condition is unsure, Ilsa feels like it is going okay but does have some small stressors going on right now . Continue current treatment regimen. Regular aerobic exercise. Psychological condition will be reassessed at the next regular appointment. Continue Citalopram 10 mg daily Start daily walks/exercises Weight loss can also help, even a few pounds If symptoms do not improve, follow up. Will adjust Citalopram or add on a medication MACY SERVICE ASSOCIATE MACY SERVICE ASSOCIATE * Assessment & Plan Note - Freda Rollins APRN - 04/08/2024 1:02 PM PHARMACY SERVICE ASSOCIATE Associated Problem(s): Essential (primary) hypertension Hypertension is improving with treatment. Continue current treatment regimen. Dietary sodium restriction. Weight loss. Regular aerobic exercise. Continue current medications. Ambulatory blood pressure monitoring. Blood pressure will be reassessed at the next regular appointment. Continue taking blood pressures randomly daily If blood pressure continue to be elevated, please make a appointment MACY SERVICE ASSOCIATE * Assessment & Plan Note - Freda Rollins APRN - 04/08/2024 12:58 PM PHARMACY SERVICE ASSOCIATE Associated Problem(s): Venous insufficiency of both lower extremities Call [facility] to see about J[employer] Wright DME order printed off and given to Ilsa. DME order was faxed to [facility]. MACY SERVICE ASSOCIATE * Assessment & Plan Note - Freda Rollins APRN - 04/08/2024 12:56 PM PHARMACY SERVICE ASSOCIATE Associated Problem(s): Dizziness EKG completed, Labs ordered Take it easy from getting up from a lying down or sitting position Increase water intake, eat a variety of healthy foods from lean meats, vegetables and fruits Continue Meclizine 25 mg as needed for dizziness MACY SERVICE ASSOCIATE MACY SERVICE ASSOCIATE * Assessment & Plan Note - Freda Rollins APRN - 04/08/2024 12:54 PM PHARMACY SERVICE ASSOCIATE Associated Problem(s): Shoulder pain Tylenol/Ibuprofen for pain Heat/Ice to left shoulder Topical pain relieving creams/patches Range of motion exercises Follow up if symptoms worsen or do not feel better after treatment MACY SERVICE ASSOCIATE documented in this encounter Plan of Treatment Upcoming Encounters Date Type Department Care Team (Late st Contact Info) Description 05/14/2024 10:40 AM PHARMACY SERVICE ASSOCIATE Office Visit [place] [address] [facility] [address] [place] [address] Jose Villagran MD [address] [place] [phone] Scheduled Referrals Name Type Priority Associated Diagnoses Orde r Schedule Ambulatory referral to Cardiology Outpatient Referral Routine Dizziness Acute pain of left shoulder Acute electrocardiogram changes Ordered: 04/08/2024 documented as of this encounter Procedures Procedure Name Priority Date/Time Associated Diagnosis Comments ECG 12-LEAD Routine 04/08/2024 Acute pain of left shoulder documented in this encounter Results * (ABNORMAL) Hemoglobin A1c (04/08/2024 11:02 AM PHARMACY SERVICE ASSOCIATE) Hemoglobin A1C 5.9(H) 4.0 - 5.6 % A1C 04/09/2024 3:07 PM PHARMACY SERVICE ASSOCIATE [facility] Comment: Reference Range 4.0-5.6% is for non- adults >=18 yrs <5.6% Non-Diabetic 5.7-6.4% Increased risk of Diabetes >=6.5% Indicative of Diabetes <7.0% ADA goal for glycemic control Methodology may not detect all hemoglobin variants which can affect A1c results. Method certified by National Glycohemoglobin Standardization Program. Blood (Blood, Venous) 04/08/2024 11:02 AM PHARMACY SERVICE ASSOCIATE 04/09/2024 1:06 PM PHARMACY SERVICE ASSOCIATE Freda Rollins APRN LAB BLOOD ORDERABLES F inal Result Performing Organization Address [facility]/ZIP Co de Phone Number [facility] [address] [place] [phone] * TSH (04/08/2024 11:02 AM PHARMACY SERVICE ASSOCIATE) Pathologist [facility] [place] TSH, Sensitive 2.85 0.46 - 4.68 mIU/L 04/09/2024 4:10 PM PHARMACY SERVICE ASSOCIATE [facility] Comment: The results from this or any other diagnostic test should be used and interpreted only in the context of the overall clinical picture. Biotin levels in serum remain elevated for up to 24 hours after oral or intravenous biotin administration and may interfere with this assay to produce unreliable results. Heterophilic antibodies in serum or plasma samples may cause interference in immunoassays. Exposure to animal antigens, either in the environment or as part of treatment or imaging procedures, may have circulating anti-animal antibodies present. These antibodies may interfere with the assay reagents to produce unreliable results. Results which are inconsistent with clinical observations indicate the need for additional testing. Blood 04/08/2024 11:0 2 AM PHARMACY SERVICE ASSOCIATE 04/09/2024 1:32 PM PHARMACY SERVICE ASSOCIATE Freda Rollins APRN LAB BLOOD ORDERABLES F inal Result Performing Organization Address [facility] de Phone Number [facility] [address] [place] [phone] * CBC Branch Off w/Diff (04/08/2024 11:02 AM PHARMACY SERVICE ASSOCIATE) Pathologist [facility] WBC 7.9 3.5 - 10.5 K/uL 04/08/2024 11:04 AM PHARMACY SERVICE ASSOCIATE [facility] [place] RBC 4.79 3.90 - 5.00 M/uL 04/08/2024 11:04 AM PHARMACY SERVICE ASSOCIATE [facility] [place] [place] Hemoglobin 13.7 12.0 - 15.5 g/dL 04/08/2024 11:04 AM PHARMACY SERVICE ASSOCIATE [facility] [place] Hematocrit 41.9 35.0 - 44.0 % 04/08/2024 11:04 AM PHARMACY SERVICE ASSOCIATE [facility] [place] Platelets 309 150 - 450 K/uL 04/08/2024 11:04 AM PHARMACY SERVICE ASSOCIATE [facility] [place] MCV 87.5 81.6 - 98.3 fL 04/08/2024 11:04 AM PHARMACY SERVICE ASSOCIATE [facility] [place] MCH 28.6 26.0 - 32.0 pg 04/08/2024 11:04 AM PHARMACY SERVICE ASSOCIATE [facility] [place] MCHC 32.7 32.0 - 36.0 g/dL 04/08/2024 11:04 AM PHARMACY SERVICE ASSOCIATE [facility] [place] [place] RDW 12.8 11.9 - 15.5 % 04/08/2024 11:04 AM PHARMACY SERVICE ASSOCIATE [facility] [place] [place] Lymphocytes % 22.1 % 04/08/2024 11:04 AM PHARMACY SERVICE ASSOCIATE [facility] [place] Mid-size Cells 9.4 % 04/08/2024 11:04 AM PHARMACY SERVICE ASSOCIATE [facility] [place] Granulocytes/Ashanti trophils 68.5 % 04/08/2024 11:04 AM PHARMACY SERVICE ASSOCIATE [facility] [place] Lymphocytes Absolute 1.7 0.9 - 2.9 K/uL 04/08/2024 11:04 AM PHARMACY SERVICE ASSOCIATE [facility] [place] MIDS Absolute 0.7 0.4 - 1.5 K/uL 04/08/2024 11:04 AM PHARMACY SERVICE ASSOCIATE [facility] [place] Granulocytes/Ashanti trophils Absolute 5.5 1.7 - 7.0 K/uL 04/08/2024 11:04 AM [facility] [place] Blood (Blood, Venous) 04/08/2024 11:02 AM PHARMACY SERVICE ASSOCIATE 04/08/2024 11:02 AM PHARMACY SERVICE ASSOCIATE us Freda Rollins APRN LAB BLOOD ORDERABLES F inal Result [facility] [place] [address] [place] [address] * NT-proBNP (04/08/2024 11:02 AM PHARMACY SERVICE ASSOCIATE) NT-proBNP 108 20 - 299 pg/mL 04/09/2024 2:28 PM PHARMACY SERVICE ASSOCIATE [facility] Comment: Cefoxitin sodium and sodium azide may result in falsely decreased NT-proBNP results. ~ ~ ~ ~ ~ ~ ~ ~ ~ ~ ~ ~ ~ ~ ~ ~ ~ ~ ~ ~ ~ ~ ~ ~ ~ ~ ~ ~ ~ ~ ~ ~ In Emergency Department Settings: Use the following guidelines for interpretation of results in the context of heart failure (HF): NT-proBNP Result Patient Age Interpretation <300 pg/mL Any HF unlikely >=450 pg/mL 22 - <50 yrs HF likely >=900 pg/mL 50 - <75 yrs HF likely >=1800 pg/mL >=75 yrs HF likely For each of the age groups listed above, results between 300pg/mL and the upper limit indicated should be considered as indeterminate for heart failure. Other causes of elevated NT-proBNP should be considered. ~ ~ ~ ~ ~ ~ ~ ~ ~ ~ ~ ~ ~ ~ ~ ~ ~ ~ ~ ~ ~ ~ ~ ~ ~ ~ ~ ~ ~ In Outpatient Settings: Use the following guidelines for interpretation of results in the context of heart failure (HF): NT-proBNP Result Patient Age Interpretation <125 pg/mL Any HF unlikely Results >=125 pg/mL, regardless of patient age, can be used to identify patients who require further cardiac investigation and/or differential diagnosis with non-heart failure conditions which could result in natriuretic peptides elevations. ~ ~ ~ ~ ~ ~ ~ ~ ~ ~ ~ ~ ~ ~ ~ ~ ~ ~ ~ ~ ~ ~ ~ ~ ~ ~ ~ ~ ~ Results of this test should be used in accordance with the appropriate clinical guidelines and in conjunction with clinical presentation and other diagnostic tests. Heterophilic antibodies in serum or plasma samples may cause interference in immunoassays. These antibodies may be present in blood samples from individuals regularly exposed to animals or who have been treated with animal serum products. Results that are inconsistent with clinical observations indicate the need for additional testing. Blood 04/08/2024 11:0 2 AM PHARMACY SERVICE ASSOCIATE 04/09/2024 1:32 PM PHARMACY SERVICE ASSOCIATE us Freda Rollins APRN LAB BLOOD ORDERABLES F inal Result [facility] [address] [place] [address] * (ABNORMAL) Basic metabolic panel (04/08/2024 11:02 AM PHARMACY SERVICE ASSOCIATE) Pathologist [facility] Sodium 139 135 - 145 mmol/L 04/08/2024 11:14 AM PHARMACY SERVICE ASSOCIATE [facility] [place] Potassium 4.9 3.5 - 5.1 mmol/L 04/08/2024 11:14 AM [facility] [place] Chloride 100 98 - 107 mmol/L 04/08/2024 11:14 AM [facility] [place] CO2 32(H) 22 - 29 mmol/L 04/08/2024 11:14 AM [facility] [place] Creatinine 0.9 0.4 - 1.2 mg/dL 04/08/2024 11:14 AM [facility] [place] BUN 11 5 - 25 mg/dL 04/08/2024 11:14 AM PHARMACY SERVICE ASSOCIATE [facility] [place] Glucose 111(H) 70 - 100 mg/dL 04/08/2024 11:14 AM [facility] [place] Calcium, Total,S 10.6(H) 8.4 - 10.2 mg/dL 04/08/2024 11:14 AM [facility] [place] Anion Gap 7 4 - 13 04/08/2024 11:14 AM [facility] [place] Comment: The anion gap is calculated with the following formula: AGAP = Na ? (Cl + CO2). Fasting? Unknown 04/08/2024 11:02 AM [facility] JOC[facility] MARCELO Blood 04/08/2024 11:0 2 AM PHARMACY SERVICE ASSOCIATE 04/08/2024 11:02 AM PHARMACY SERVICE ASSOCIATE us Freda Rollins APRN LAB BLOOD ORDERABLES F inal Result Performing Organization Address [facility] Co de Phone Number [facility] JOCE MARCELO [address] [place] [address] * ECG 12 lead (04/08/2024) us Freda Rollins APRN ECG ORDERABLES Final Result Performing Organization Address City/[facility]/ZIP Co de Phone Number [facility] documented in this encounter Visit Diagnoses Diagnosis Dizziness- Primary Dizziness and giddiness Generalized anxiety disorder Acute pain of left shoulder Venous insufficiency of both lower extremities Acute electrocardiogram changes documented in this encounter Care Teams Insurance Clerk Relationship Specialty Start Date End Date Freda Rollins APRN [address] [place] [id number] PCP - General 01/17/23 documented as of this encounter
--- OUTSIDE RECORDS SUMMARY | 2024-05-08 16:27 | XMS_ITS | Clinical Summary ---
Author Organization [facility] er Address [address] [place] [address] Care Team Providers Care Regional Education Manager Name Role Phone Freda Rollins APRN Primary Care Provider Allergies Active Allergy Reactions Criticality Noted Date Comments Latex 08/29/2018 Penicillins 08/29/2018 Medications aspirin 81 MG chewable tablet Chew 1 tablet (81 mg total) 1 (one) time each day Active calcium carbonate (OS-ALIDA) 600 MG tablet Take 1 tablet (600 mg total) by mouth 2 (two) times a day Active cholecalciferol (VITAMIN D-3) 2000 units tablet Take 1 tablet (2,000 Units total) by mouth 2 (two) times a day Active ramipril (ALTACE) 10 MG capsuleIndications :Essential hypertension TAKE 1 CAPSULE BY MOUTH ONCE DAILY FOR BLOOD PRESSURE. On file. 90 capsule 3 10/25/19 24 Active potassium chloride (KLOR-CON M) 20 MEQ CR tabletIndications: Essential (primary) hypertension Take 1 tablet (20 mEq total) by mouth 1 (one) time each day Do not crush or chew. On file. 90 tablet 3 10/25/19 24 025 Active citalopram (CeleXA) 10 MG tabletIndications: Anxiety and depression TAKE ONE TABLET BY MOUTH EVERY DAY FOR DEPRESSION/ANXI ETY. On file 90 tablet 3 10/25/19 24 Active atorvastatin (LIPITOR) 20 MG tabletIndications: Mixed hyperlipidemia TAKE ONE TABLET BY MOUTH EVERY DAY FOR CHOLESTEROL on file. 90 tablet 3 10/25/19 24 Active amLODIPine (NORVASC) 5 MG tabletIndications: Essential hypertension TAKE 1 TABLET BY MOUTH TWICE A DAY FOR BLOOD PRESSURE. On file 180 tablet 3 10/25/19 24 Active traZODone (DESYREL) 50 MG tabletIndications: Sleep disturbance Take one and 1/2 tabs at night to assist with sleep 135 tablet 1 03/23/20 24 Active meclizine (ANTIVERT) 25 MG tabletIndications: Dizziness Take 1 tablet (25 mg total) by mouth 3 (three) times a day if needed for dizziness 90 tablet 3 04/08/19 25 026 Active losartan (Cozaar) 25 MG tabletIndications: Essential (primary) hypertension Take 1 tablet (25 mg total) by mouth 1 (one) time each day 30 tablet 1 05/05/19 25 026 Active loratadine (Claritin) 10 MG tabletIndications: Acute serous otitis media, recurrence not specified, unspecified laterality Take 1 tablet (10 mg total) by mouth 1 (one) time each day 30 tablet 05/05/19 25 025 Active hydroCHLOROthiazid e (HYDRODIURIL) 25 MG tabletIndications: Essential hypertension TAKE ONE TABLET BY MOUTH EVERY DAY FOR BLOOD PRESSURE. On file. 90 tablet 3 10/25/19 24 025 Discontin ued(Aleaa silvina Completed ) Active Problems Problem Noted Date Diagnosed Date Acute serous otitis media 05/05/2024 Assessment & Plan (05/05/2024 3:52 PM FIELD OPERATIONS TECHNICIAN): Try Claritin 10 mg nightly for 14-30 nights Dizziness 04/08/2024 Assessment & Plan (05/05/2024 3:54 PM FIELD OPERATIONS TECHNICIAN): Stop Hydrochlorothiazide Try Claritin 10 mg nightly for 14-30 nights Call [facility] Joce Marcelo ID and schedule physical therapy If stopping hydrochlorothiazide, starting Claritin and going to physical therapy does not improve symptoms. We will look at possible imaging of the head next. Assessment & Plan (04/08/2024 12:56 PM FIELD OPERATIONS TECHNICIAN): EKG completed, Labs ordered Take it easy from getting up from a lying down or sitting position Increase water intake, eat a variety of healthy foods from lean meats, vegetables and fruits Continue Meclizine 25 mg as needed for dizziness Acute electrocardiogram changes 04/08/2024 Assessment & Plan (04/08/2024 1:07 PM FIELD OPERATIONS TECHNICIAN): Referral placed to cardiology Venous insufficiency of both lower extremities 1 05/20/2023 Assessment & Plan (04/08/2024 12:58 PM FIELD OPERATIONS TECHNICIAN): Call [facility] to see about JUANI Wright DME order printed off and given to Ilsa. DME order was faxed to [facility]. GENE (obstructive sleep apnea) 08/02/2023 Assessment & Plan (10/25/2023 12:28 PM CDT): Continue Sleep apnea Stress incontinence 05/10/2023 Urge incontinence 05/10/2023 Mixed hyperlipidemia 12/17/2022 Assessment & Plan (10/25/2023 12:26 PM CDT): Lipid abnormalities are improving with treatment. Nutritional counseling was provided. and Pharmacotherapy as ordered. Lipids will be reassessed in 1 year. Continue Atorvastatin 20 mg daily Anxiety and depression 10/10/2021 Assessment & Plan (10/25/2023 12:27 PM CDT): Psychological condition is improving with treatment. Continue current treatment regimen. Regular aerobic exercise. Psychological condition will be reassessed at the next regular appointment. Continue Citalopram 10 mg daily Sleep disorder 10/10/2021 Assessment & Plan (10/25/2023 12:28 PM CDT): Continue Trazodone as needed History of right hip replacement 10/10/2021 History of total right knee replacement 10/11/19 22 Presence of right artificial hip joint Anxiety disorder 10/10/2021 Assessment & Plan (04/08/2024 1:06 PM FIELD OPERATIONS TECHNICIAN): Psychological condition is unsure, Ilsa feels like [...] adjust Citalopram or add on a medication Shoulder pain 10/12/2019 Assessment & Plan (04/08/2024 12:54 PM FIELD OPERATIONS TECHNICIAN): Tylenol/Ibuprofen for pain Heat/Ice to left shoulder Topical pain relieving creams/patches Range of motion exercises Follow up if symptoms worsen or do not feel better after treatment Hx of skin cancer, basal cell 08/29/2018 Overview (11/04/2018): Scalp and shoulder, 2018 Lipoma of left upper extremity 08/29/2018 Primary osteoarthritis of both knees 08/29/2018 Osteoarthritis of knee 08/29/2018 Essential (primary) hypertension 08/15/2015 Assessment & Plan (05/05/2024 3:53 PM FIELD OPERATIONS TECHNICIAN): Hypertension is worsening. Dietary sodium restriction. Weight loss. Regular aerobic exercise. Medication changes per orders. Blood pressure will be reassessed 6 weeks . Stop Hydrochlorothiazide, Start Losartan 25 mg daily Assessment & Plan (04/08/2024 1:02 PM FIELD OPERATIONS TECHNICIAN): Hypertension is improving with treatment. Continue current treatment regimen. Dietary sodium restriction. Weight loss. Regular aerobic exercise. Continue current medications. Ambulatory blood pressure monitoring. Blood pressure will be reassessed at the next regular appointment. Continue taking blood pressures randomly daily If blood pressure continue to be elevated, please make a appointment Assessment & Plan (10/25/2023 12:25 PM CDT): Hypertension is improving with treatment. Dietary sodium restriction. Weight loss. Regular aerobic exercise. Continue current medications. Blood pressure will be reassessed at the next regular appointment. Continue Amlodipine 5 mg daily Continue Hydrochlorothiazide 25 mg daily Continue Ramipril 10 mg daily Resolved Problems Problem Noted Date Diagnosed Date Resolved Date Recurrent major depressive d isorder, in partial remission 10/10/2021 12/17/2022 Essential (primary) hypertension 06/27/2013 06/22/2020 Overview (10/12/2019): Benign Essential Hypertension Essential hypertension, benign Benign essential hypertension 06/27/2013 10/10/2021 Overview (10/10/2021): Benign Essential Hypertension Essential hypertension, benign Encounters Date Type Department Care Team Description 05/08/2024 Orders Only [facility] [address] [place] [address] Freda Rollins APRN 05/06/2024 Orders Only [facility] [address] [place] [address] Freda Rollins, CARLIE Dizziness (Primary Dx) 05/06/2024 Telephone [facility] [address] [place] [id number] Freda Rollins APRN Med Management; Hypertension 05/05/2024 3:00 PM FIELD OPERATIONS TECHNICIAN Office Visit [facility] [address] [place] [address] Freda Rollins, CARLIE Dizziness (Primary Dx); Essential (primary) hypertension; Acute serous otitis media, recurrence not specified, unspecified laterality 04/22/2024 11:33 AM FIELD OPERATIONS TECHNICIAN - 04/22/2024 11:59 PM FIELD OPERATIONS TECHNICIAN Hospital Encounter [facility] [address] [place], [place] [phone] Discharge Disposition: Home or Self Care 04/21/2024 7:05 AM FIELD OPERATIONS TECHNICIAN Clinical Support [facility] [address] [place] [address] Essential (primary) hypertension (Primary Dx) 04/21/2024 Orders Only [facility]ce Marcelo [address] [place] [address] Ivelisse Rea RN Dizziness; RBBB; Essential (primary) hypertension; GENE (obstructive sleep apnea) 04/10/2024 9:20 AM FIELD OPERATIONS TECHNICIAN Clinical Support [facility] [address] [place] [id number] 04/09/2024 9:20 AM FIELD OPERATIONS TECHNICIAN Consult [facility] Marcel[facility] [address] [place] [address] [place] [address] Jose Villagran MD Dizziness (Primary Dx); RBBB; Essential (primary) hypertension; Mixed hyperlipidemia; GENE (obstructive sleep apnea); Generalized anxiety disorder 04/08/2024 10:45 AM FIELD OPERATIONS TECHNICIAN Lab [facility] [address] [place] [address] [place] [address] Acute pain of left shoulder 04/08/2024 10:00 AM FIELD OPERATIONS TECHNICIAN Office Visit [facility] [address] [place] [address] Freda Rollins, DEMO COORDINATOR Dizziness (Primary Dx); Generalized anxiety disorder; Acute pain of left shoulder; Venous insufficiency of both lower extremities; Acute electrocardiogram changes 04/07/2024 Nurse Triage [place] [address] Freda Rollins, DEMO COORDINATOR 03/20/[address] [place] [address] Freda Rollins, DEMO COORDINATOR Medication request 03/16/2024 3:40 PM FIELD OPERATIONS TECHNICIAN Office Visit [facility] [address] [place] [address] Marvin Gonzales MD Venous insufficiency of both lower extremities (Primary Dx) 03/16/2024 7:05 AM FIELD OPERATIONS TECHNICIAN Clinical Support [facility] [address] [place] [address] Essential (primary) hypertension (Primary Dx) 03/16/[address] [place] [address] Freda Rollins, DEMO COORDINATOR FYI - Order 03/13/2024 Nurse Triage [place] [address] Freda Rollins, DEMO COORDINATOR 02/12/2024 7:05 AM FIELD OPERATIONS TECHNICIAN Clinical Support [facility] [address] [place] [address] Essential (primary) hypertension (Primary Dx) from Last 3 Months Immunizations Name Administration Dates Next Due COVID-19, mRNA, LNP-S, PF, 3 0mcg/0.3mL dose Pfizer 10/13/2021,06/17/2020,05/27/2020 COVID-19, mRNA, LNP-S, bival ent booster 12 yr and older, PF, 30mcg/0.3mL dose (pfizer) 01/29/2022 COVId-19, mRNA, LNP-s, PF, 5 0mcg/0.5mL Ages 12+ (Moderna Spikevax) 01/23/2023 Flu Vaccine High Dose 65yrs and Older IM 02/14/2023,02/02/2022,02/01/2021,01/17,01/14/2018,01/09/2017,12/24/2015 ,01/12/2014 Hepatitis B 03/27/1990,10/22/1989,09/23/1989 Influenza Split 12/30/2002,04/01/1999 Influenza, Adjuvanted, Triva lent, PF (FLUAD) 01/01/2024 Influenza, Split Virus, Triv alent, Preservative 12/30/2002,04/01/1999 Influenza, Unspecified 01/12/2011,01/12/2010 Pneumococcal Conjugate 13-Valent 12/01/2014 Pneumococcal Polysaccharide 09/21/2005 RSV, recombinant, 0.5mL PF (Arexvy) 02/25/2023 SARS-COV-2 (COVID-19) vaccin e, vector non-replicating, recombinant spike protein- Ad26, preservative free, 0.5mL (Tecogen) 06/17/2020,05/27/2020 TD Preservative Free 09/21/2005 Td 09/21/2005 Tdap 01/02/2016 Zoster 08/24/2011 Zoster Recombinant 01/03/2023,09/04/2022 Family History Medical History Relation Comments Sleep apnea Daughter Cancer Sister Sleep apnea Son 1 Relation Status Comments Daughter Alive Father Mother Sister Alive Son 1 Alive Son 2 Alive Social History Tobacco Use Types Packs/Day Years Used Date Smoking Tobacco: Former Smokeless Tobacco: Never Tobacco Cessation:Counseling Given: Not Answered Alcohol Use Standard Drinks/Week Comments Not Currently 7 (1 standard drink = 0.6 oz pur e alcohol) B1300 Health Literacy Answer Date Recor ded How often do you need to hav e someone help you when you read instructions, pamphlets, or other written material from your doctor or pharmacy? Rarely 04/08/2024 [facility] Utilities Answer Date Recorded In the past 12 months has th e electric, gas, oil, or water company [...] How often do you attend chur or anabaptist services? More than 4 times per year 04/08/2024 Do you belong to any clubs o r organizations such as religion groups, unions, fraternal or athletic groups, or [...] Date Recorded PHQ-9 Total Score 0 04/08/2024 [facility] - Occupational [...] place to sleep or slept in a care home (including now)? No 10/14/2022 Housing Stability Vital Sign Answer Byron e Recorded In the last 12 months, was t here a time when you were not able to pay the mortgage or rent on time? No 04/08/2024 In the past 12 months, how m any times have you moved where you were living? 0 04/08/2024 At any time in the past 12 m [facility], were you homeless or living in a care home (including now)? No 04/08/2024 Interpersonal Safety Questionnaire Answer Date Recorded How often does anyone, annette marie family and friends, physically hurt you? Never 04/08/2024 How often does anyone, nanette marie family and friends, insult or talk [...] on file Sexual Orientation Not on file Last Filed Vital Signs Vital Sign Reading Time Taken Comments Blood Pressure 144/68 05/05/2024 3:08 PM FIELD OPERATIONS TECHNICIAN Pulse 84 05/05/2024 2:45 PM FIELD OPERATIONS TECHNICIAN Temperature 37.1 C (98.8 F) 05/05/2024 2:45 PM FIELD OPERATIONS TECHNICIAN Respiratory Rate 28 05/05/2024 2:45 PM FIELD OPERATIONS TECHNICIAN Oxygen Saturation 96% 05/05/2024 2:45 PM FIELD OPERATIONS TECHNICIAN Inhaled Oxygen Concentration - - Weight 92.3 kg (203 lb 8 oz) 05/05/2024 2:45 PM FIELD OPERATIONS TECHNICIAN Height 162.6 cm (5' 4) 04/09/2024 9:01 AM FIELD OPERATIONS TECHNICIAN Body Mass Index 34.93 04/09/2024 9:01 AM FIELD OPERATIONS TECHNICIAN Plan of Treatment Upcoming Encounters Date Type Department Care Team (Late st Contact Info) Description 05/14/2024 10:40 AM FIELD OPERATIONS TECHNICIAN Office [facility] [place] [address] [facility] [place] [address] Jose Villagran MD [address] [place] [id number] Health Maintenance Due Date Last Done Comments Bone Density Scan 10/24/2024 10/08/2018 Postponed from 10/09/2023 (Patient Preference) Medicare Annual Wellness Visit (AWV) 10/24/2024 10/25/2023, 08/30/2017 Fall Risk Performed 04/08/2025 04/08/2024, 8 DTaP,Tdap,and Td Vaccines (2 - Td or Tdap) 01/01/2026 01/02/2016, 09/21/2005, 09/21/2005 Pneumococcal Vaccine: 50+ Years Completed 12/01/2014, 09/21/2005 Mammogram Discontinued 12/14/2021, 11/30, 12/11/2021, Additional history exists Zoster Vaccines Completed 01/03/2023, 08/2022, 08/24/2011 Influenza Vaccine Completed 01/01/2024, , 02/02/2022, Additional history exists COVID-19 Vaccine Completed 01/30/2024, , 01/29/2022, Additional history exists HPV Vaccines Aged Out No longer eligi ble based on patient's age to complete this topic Procedures Procedure Name Priority Date/Time Associated Diagnosis Comments ECHOCARDIOGRAM 2D COMPLETE WITH SPEC AND COLOR FORM DOPPLER WITHOUT CONTRAST Routine 04/22/2024 12:09 PM FIELD OPERATIONS TECHNICIAN Dizziness RBBB Essential (primary) hypertension GENE (obstructive sleep apnea) HOLTER MONITOR - 48 HOUR Routine 04/10/2024 Dizziness RBBB Essential (primary) hypertension GENE (obstructive sleep apnea) ESTIMATED GLOMERULAR FILTRATION RATE (EGFR) Routine 04/08/2024 11:02 AM FIELD OPERATIONS TECHNICIAN Acute pain of left shoulder BASIC METABOLIC PANEL Routine 04/08/2024 11:02 AM FIELD OPERATIONS TECHNICIAN Acute pain of left shoulder NT-PROBNP Routine 04/08/2024 11:02 AM FIELD OPERATIONS TECHNICIAN Acute pain of left shoulder CBC BRANCH OFFICE W/DIFF Routine 04/08/2024 11:02 AM FIELD OPERATIONS TECHNICIAN Acute pain of left shoulder TSH Routine 04/08/2024 11:02 AM FIELD OPERATIONS TECHNICIAN Acute pain of left shoulder HEMOGLOBIN A1C Routine 04/08/2024 11:02 AM FIELD OPERATIONS TECHNICIAN Acute pain of left shoulder ECG 12-LEAD Routine 04/08/2024 Acute pain of left shoulder MAMMOGRAM BREAST SCREENING BILATERAL Routine 10/08/2018 2:40 PM CDT Visit for screening mammogram DEXA BONE DENSITY Routine 10/08/2018 2:1 9 PM CDT Osteopenia, unspecified location from Last 3 Months or Most Recently Relevant to Health Maintenance Results * Echocardiogram 2D Complete With Spec and Color Form Doppler Without Contrast (04/22/2024 12:09 PM FIELD OPERATIONS TECHNICIAN) Anatomical Region Laterality Modality Heart Ultrasound 04/22/2024 11:4 1 AM FIELD OPERATIONS TECHNICIAN us Jose Villagran MD CV ECHO PROCEDURES Fin al Result * Holter monitor - 48 hour (04/10/2024) us Jose Villagran MD CV CARDIAC SERVICES SC OCEDURES Final Result [facility] * Estimated Glomerular Filtration Rate (eGFR) (04/08/2024 11:02 AM FIELD OPERATIONS TECHNICIAN) Pathologist [facility] Estimated Glomerular Filtration Rate (eGFR) >60 04/08/2024 11:14 AM FIELD OPERATIONS TECHNICIAN [facility] Comment: GFR calculated from serum creatinine value Chronic Kidney Disease less than 60 mL/min/1.73 m2 Kidney Failure less than 15 mL/min/1.73 m2 Note: effective 03/28/2022: 2020 CKD-EPI Equation used 04/08/2024 11:0 2 AM FIELD OPERATIONS TECHNICIAN 04/08/2024 11:02 AM FIELD OPERATIONS TECHNICIAN us Freda Rollins APRN LAB BLOOD ORDERABLES F inal Result [facility] [address] [place] [address] * CBC Branch Off w/Diff (04/08/2024 11:02 AM FIELD OPERATIONS TECHNICIAN) WBC 7.9 3.5 - 10.5 K/uL 04/08/2024 11:04 AM FIELD OPERATIONS TECHNICIAN [facility] RBC 4.79 3.90 - 5.00 M/uL 04/08/2024 11:04 AM FIELD OPERATIONS TECHNICIAN [facility] Hemoglobin 13.7 12.0 - 15.5 g/dL 04/08/2024 11:04 AM FIELD OPERATIONS TECHNICIAN [facility] Hematocrit 41.9 35.0 - 44.0 % 04/08/2024 11:04 AM FIELD OPERATIONS TECHNICIAN [facility] Platelets 309 150 - 450 K/uL 04/08/2024 11:04 AM FIELD OPERATIONS TECHNICIAN [facility] MCV 87.5 81.6 - 98.3 fL 04/08/2024 11:04 AM FIELD OPERATIONS TECHNICIAN [facility] MCH 28.6 26.0 - 32.0 pg 04/08/2024 11:04 AM FIELD OPERATIONS TECHNICIAN [facility] MCHC 32.7 32.0 - 36.0 g/dL 04/08/2024 11:04 AM FIELD OPERATIONS TECHNICIAN [facility] RDW 12.8 11.9 - 15.5 % 04/08/2024 11:04 AM FIELD OPERATIONS TECHNICIAN [facility] Lymphocytes % 22.1 % 04/08/2024 11:04 AM FIELD OPERATIONS TECHNICIAN [facility] Mid-size Cells 9.4 % 04/08/2024 11:04 AM FIELD OPERATIONS TECHNICIAN [facility] Granulocytes/Ashanti trophils 68.5 % 04/08/2024 11:04 AM FIELD OPERATIONS TECHNICIAN [facility] Lymphocytes Absolute 1.7 0.9 - 2.9 K/uL 04/08/2024 11:04 AM FIELD OPERATIONS TECHNICIAN [facility] MIDS Absolute 0.7 0.4 - 1.5 K/uL 04/08/2024 11:04 AM FIELD OPERATIONS TECHNICIAN [facility] Granulocytes/Ashanti trophils Absolute 5.5 1.7 - 7.0 K/uL 04/08/2024 11:04 AM FIELD OPERATIONS TECHNICIAN [facility] Blood (Blood, Venous) 04/08/2024 11:02 AM FIELD OPERATIONS TECHNICIAN 04/08/2024 11:02 AM FIELD OPERATIONS TECHNICIAN Freda Rollins APRN LAB BLOOD ORDERABLES F inal Result [facility] [address] [place] [address] * NT-proBNP (04/08/2024 11:02 AM FIELD OPERATIONS TECHNICIAN) NT-proBNP 108 20 - 299 pg/mL 04/09/2024 2:28 PM FIELD OPERATIONS TECHNICIAN [facility] Comment: Cefoxitin sodium and sodium azide [...] additional testing. Blood 04/08/2024 11:0 2 AM FIELD OPERATIONS TECHNICIAN 04/09/2024 1:32 PM FIELD OPERATIONS TECHNICIAN Freda Rollins APRN LAB BLOOD ORDERABLES F inal Result Performing Organization Address [facility] Co de Phone Number [facility] [address] [place] [phone] * TSH (04/08/2024 11:02 AM FIELD OPERATIONS TECHNICIAN) TSH, Sensitive 2.85 0.46 - 4.68 mIU/L 04/09/2024 4:10 PM FIELD OPERATIONS TECHNICIAN [facility] Comment: The results from this or [...] additional testing. Blood 04/08/2024 11:0 2 AM FIELD OPERATIONS TECHNICIAN 04/09/2024 1:32 PM FIELD OPERATIONS TECHNICIAN Freda Rollins APRN LAB BLOOD ORDERABLES F inal Result Performing Organization Address [facility] de Phone Number [facility] [address] [place] [phone] * (ABNORMAL) Hemoglobin A1c (04/08/2024 11:02 AM FIELD OPERATIONS TECHNICIAN) Hemoglobin A1C 5.9(H) 4.0 - 5.6 % A1C 04/09/2024 3:07 PM FIELD OPERATIONS TECHNICIAN [facility] Comment: Reference Range 4.0-5.6% is for non- adults >=18 yrs <5.6% Non-Diabetic 5.7-6.4% Increased risk of Diabetes >=6.5% Indicative of Diabetes <7.0% ADA goal for glycemic control Methodology may not detect all hemoglobin variants which can affect A1c results. Method certified by National Glycohemoglobin Standardization Program. Blood (Blood, Venous) 04/08/2024 11:02 AM FIELD OPERATIONS TECHNICIAN 04/09/2024 1:06 PM FIELD OPERATIONS TECHNICIAN Freda Rollins APRN LAB BLOOD ORDERABLES F inal Result [facility] [address] [place] [address] * (ABNORMAL) Basic metabolic panel (04/08/2024 11:02 AM FIELD OPERATIONS TECHNICIAN) Pathologist [facility] Sodium 139 135 - 145 mmol/L 04/08/2024 11:14 AM FIELD OPERATIONS TECHNICIAN [facility] Potassium 4.9 3.5 - 5.1 mmol/L 04/08/2024 11:14 AM FIELD OPERATIONS TECHNICIAN [facility] Chloride 100 98 - 107 mmol/L 04/08/2024 11:14 AM FIELD OPERATIONS TECHNICIAN [facility] CO2 32(H) 22 - 29 mmol/L 04/08/2024 11:14 AM FIELD OPERATIONS TECHNICIAN [facility] Creatinine 0.9 0.4 - 1.2 mg/dL 04/08/2024 11:14 AM FIELD OPERATIONS TECHNICIAN [facility] BUN 11 5 - 25 mg/dL 04/08/2024 11:14 AM FIELD OPERATIONS TECHNICIAN [facility] Glucose 111(H) 70 - 100 mg/dL 04/08/2024 11:14 AM FIELD OPERATIONS TECHNICIAN [facility] Calcium, Total,S 10.6(H) 8.4 - 10.2 mg/dL 04/08/2024 11:14 AM FIELD OPERATIONS TECHNICIAN [facility] Anion Gap 7 4 - 13 04/08/2024 11:14 AM FIELD OPERATIONS TECHNICIAN [facility] Comment: The anion gap is calculated with the following formula: AGAP = Na ? (Cl + CO2). Fasting? Unknown 04/08/2024 11:02 AM FIELD OPERATIONS TECHNICIAN [facility] Blood 04/08/2024 11:0 2 AM FIELD OPERATIONS TECHNICIAN 04/08/2024 11:02 AM FIELD OPERATIONS TECHNICIAN Freda Rollins APRN LAB BLOOD ORDERABLES F inal Result [facility] [address] [place] [id number] * ECG 12 lead (04/08/2024) us Freda Rollins APRN ECG ORDERABLES Final Result [facility] * Mammogram breast screening bilateral (10/08/2018 2:40 PM CDT) Anatomical Region Laterality Modality Breast Bilateral Mammography 10/08/2018 2:40 PM CDT Impressions 10/16/2018 10:31 AM CDT IMPRESSION: BILATERAL BREASTS Negative; no evidence of malignancy. Routine follow-up is recommended in 1 year, or at next clinically-appropriate interval. ASSESSMENT: BI-RADS 1: Final Overall Assessment: Negative ResultCode BIRADS: 1 Side: B-Bilateral Breast composition: 2-There are scattered areas of fibroglandular density Recommendation: N-Normal interval follow up in 12 months CAD REVIEW: Computer aided detection equipment was used during the interpretation of this study.- Narrative 10/16/2018 10:31 AM CDT EXAM DESCRIPTION: MAMMOGRAM BILATERAL SCREENING DIGITAL INDICATION: 78 y/o F. screening mammogram. RISK FACTOR: Personal: Post-menopausal patient Family: Intermediate family history of breast cancer (Paternal Aunt, 61; Sister, 71) Family history of ovarian cancer in distant blood relatives(Paternal Cousin) PROCEDURES PERFORMED: Excisional biopsy, Left Breast, 04/01/1992, Benign COMPARISON: Comparison to outside images dated 11/28/2016 and 10/17/2009. FINDINGS: Routine bilateral 2D screening examination including CC and MLO projections. There are scattered areas of fibroglandular density. No significant masses, calcifications or other abnormalities are seen. Procedure Note Juan Luis Oconnell MD - 10/16/2018 EXAM DESCRIPTION: MAMMOGRAM BILATERAL SCREENING DIGITAL INDICATION: 78 y/o F. screening mammogram. RISK FACTOR: Personal: Post-menopausal patient Family: Intermediate family history of breast cancer (Paternal Aunt, 61; Sister, 71) Family history of ovarian cancer in distant blood relatives(Paternal Cousin) PROCEDURES PERFORMED: Excisional biopsy, Left Breast, 04/01/1992, Benign COMPARISON: Comparison to outside images dated 11/28/2016 and 10/17/2009. FINDINGS: Routine bilateral 2D screening examination including CC and MLO projections. There are scattered areas of fibroglandular density. No significant masses, calcifications or other abnormalities are seen. IMPRESSION: BILATERAL BREASTS Negative; no evidence of malignancy. Routine follow-up is recommended in 1 year, or at next clinically-appropriate interval. ASSESSMENT: BI-RADS 1: Final Overall Assessment: Negative ResultCode BIRADS: 1 Side: B-Bilateral Breast composition: 2-There are scattered areas of fibroglandulardensity Recommendation: N-Normal interval follow up in 12 months CAD REVIEW: Computer aided detection equipment was used during the interpretation of this study.- us Harsha Covarrubias MD IMG BI PROCEDURES Final Resu lt * Dexa bone density axial skeleton (10/08/2018 2:19 PM CDT) Anatomical Region Laterality Modality Wrist, Hip, L-spine Radiographic Imaging 10/08/2018 2:19 PM CDT Impressions 10/08/2018 2:40 PM CDT IMPRESSION: Osteopenia FINDINGS: Patient: LUPIS AGUIRRE Birthdate: 1940, [age] Height/Weight: 162.6 cm, 86.4 kg Gender/Ethnicity: Female, White Facility ID: (not specified) Referring Physician: Marcin Covarrubias MD Measured: 10/08/2018, 2:03:28 PM, 13.60 Analyzed: 10/08/2018, 2:11:53 PM, 13.60 Results: Region Measured Age BMD T-score Z-score Neck Left 10/08/2018 [age] 0.736 g/cm2 -2.2 -0.6 Neck Right 10/08/2018 [age] 0.911 g/cm2 -0.9 0.7 Total Left 10/08/2018 [age] 0.987 g/cm2 -0.2 1.2 Total Right 10/08/2018 [age] 1.027 g/cm2 0.1 1.5 ASSESSMENT: The diagnosis in pre-menopausal women and men can be based on low bone mass or evidence of skeletal fragility in the appropriate clinical setting. World Health Organization - Definition of osteoporosis and Osteopenia for Women* Normal: T-Score at or above -1 SD Osteopenia: T-Score between -1 and -2.5 SD Osteoporosis: T-Score at or below -2.5 SD Established Osteoporosis: T-Score at or below -2.5 SD plus fragility fracture *WHO definitions only apply when a young healthy Women reference database is used to determine T- Scores. Narrative 10/08/2018 2:40 PM CDT INDICATION: Post menopause (age-related, natural) Procedure Note Chencho Palmer MD - 10/08/2018 INDICATION: Post menopause (age-related, natural) IMPRESSION: Osteopenia FINDINGS: Patient: LUPIS AGUIRRE Birthdate: 1940, [age] Height/Weight: 162.6 cm, 86.4 kg Gender/Ethnicity: Female, White Facility ID: (not specified) Referring Physician: Marcin Covarrubias MD Measured: 10/08/2018, 2:03:28 PM, 13.60 Analyzed: 10/08/2018, 2:11:53 PM, 13.60 Results: Region Measured Age BMD T-score Z-score Neck Left 10/08/2018 78.0 0.736 g/cm2 -2.2 -0.6 Neck Right 10/08/2018 [age] 0.911 g/cm2 -0.9 0.7 Total Left 10/08/2018 [age] 0.987 g/cm2 -0.2 1.2 Total Right 10/08/2018 [age] 1.027 g/cm2 0.1 1.5 ASSESSMENT: The diagnosis in pre-menopausal women and men can be based on low bone mass or evidence of skeletal fragility in the appropriate clinicalsetting. World Health Organization - Definition of osteoporosis and Osteopenia for Women* Normal: T-Score at or above -1 SD Osteopenia: T-Score between -1 and -2.5 SD Osteoporosis: T-Score at or below -2.5 SD Established Osteoporosis: T-Score at or below -2.5 SD plus fragility fracture *WHO definitions only apply when a young healthy Women reference database is used to determine T- Scores. us Harsha Covarrubias MD IMG DXA PROCEDURES Final Res ult from Last 3 Months or Most Recently Relevant to Health Maintenance Insurance MEDICARE [facility] Advance Directives For more information, please contact: [phone] Documents on File Type Date Recorded Patient Tire Shop Manager Expl anation Advance Directive 01/06/2019 9:02 AM Advan ce Directive Advance Directives and Living Will 01/06/2019 9:01 AM Care Teams Regional Education Manager Relationship Specialty Start Date End Date Freda Rollins APRN [address] [place] [id number] PCP - General 01/17/23
--- OUTSIDE RECORDS SUMMARY | 2024-05-08 16:27 | XMS_ITS | Clinical Summary ---
Author Organization [facility] Address [address] [place] [id number] Care Team Providers Care Proposal Manager Name Role Phone Elsewhere, Pcp Primary Care Provider Unavailabl e Source Comments Patient records contain information from all sites at [facility]. For routine questions regarding patient records, call [phone] during business hours, M-F 8:00 AM - 5:00 PM Central Time. Record requests for emergency care only can be directed to [phone] at any time.[facility] Allergies Active Allergy Reactions Criticality Noted Date Comments Latex Itching,Rash 08/15/2010 Penicillins Other (see comments) 07/24/2010 Delirium during childhood Medications * This document contains information received from the source organization and may not represent a complete record from that organization. acetaminophen (TYLENOL) 500 mg tablet Take 500 mg by mouth 3 (three) times a day. 4 Active amLODIPine (NORVASC) 10 mg tablet Take 10 mg by mouth 2 (two) times a day. 9 Active aspirin 81 mg chewable tablet Chew 1 tablet daily. Active calcium carbonate 1,500 mg (600 mg calcium) tablet Take 1,200 mg by mouth daily. 1 Active cholecalciferol (VITAMIN D3) 2,000 Unit tablet Take 2,000 Units by mouth 2 (two) times a day. Active citalopram (CeleXA) 10 mg tablet Take 10 mg by mouth daily. 0 Active ramipriL (ALTACE) 10 mg capsule Take 20 mg by mouth daily. 0 Active traZODone (DESYREL) 50 mg tablet Take 50 mg by mouth at bedtime as needed. 0 Active potassium chloride (KLOR-CON M/KDUR) 20 mEq ER tablet 2 Active hydroCHLOROthia zide (HYDRODIURIL) 25 mg tablet Take ONE a day for blood pressure 1 Active atorvastatin (LIPITOR) 20 mg tablet Take 1/2 pill a day for the first ten days then one pill a day thereafter for cholesterol 2 Active ketorolac (ACULAR) 0.5 % ophthalmic solution Administer 1 drop into the left eye 4 (four) times a day. Begin 12/16/2021. Follow schedule provided. 5 mL 1 2 Active prednisoLONE acetate (PRED FORTE) 1 % ophthalmic suspension Administer 1 drop into the left eye 4 (four) times a day. Begin 12/16/2021. Follow schedule provided. 10 mL 1 2 Active Additional Information Patient not taking.Reported on 01/25/2022 moxifloxacin (VIGAMOX) 0.5 % ophthalmic solution Administer 1 drop into the right eye 4 (four) times a day. Begin 01/01/2022. Follow schedule provided. 3 mL 1 2 Active Additional Information Patient not taking.Reported on 01/25/2022 ketorolac (ACULAR) 0.5 % ophthalmic solution Administer 1 drop into the right eye 4 (four) times a day. Begin 01/01/2022. Follow schedule provided. 5 mL 1 2 Active prednisoLONE acetate (PRED FORTE) 1 % ophthalmic suspension Administer 1 drop into the right eye 4 (four) times a day. Begin 01/01/2022. Follow schedule provided. 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 10/11/19 22 Sleep Disorder 10/10/2021 Depression Major Recurrent Partial Remission 03/2022 Primary Osteoarthritis Knee Bilateral 08/29/2018 Hypertension Essential Benign 06/27/2013 Overview (08/21/2016): Benign Essential Hypertension Essential hypertension, benign Hypertension 08/27/2003 Pain Shoulder Left Resolved Problems Problem Noted Date Diagnosed Date Resolved Date Cataract Senile Nuclear Sclerosis Left 11/22/2021 12/28/2021 Overview (11/22/2021): Added automatically from request for surgery [id number] Encounters Date Type Department Care Team Description 05/03/2024 8:38 AM SHIPPING AND RECEIVING MATERIAL HANDLER - 05/03/2024 10:53 AM SHIPPING AND RECEIVING MATERIAL HANDLER Emergency [facility] [address] [place] [phone] Chapo King P.A.Alhaji., P.A. Lightheadedness (Primary Dx) Discharge Disposition: Home or Self Care from Last 3 Months Immunizations Immunization Administration Dates Next Due HZV (ZOSTAVAX) 08/24/2011 HepB (discontinued) adolesce nt/high risk 03/27/1990,10/22/1989,09/23/1989 Influenza Split 12/30/2002,04/01/1999 Influenza, Unspecified 01/12/2011,01/12/2010 PCV13 12/01/2014 PPSV23 09/21/2005 Td (Adult), adsorbed 09/21/2005 Family History Medical History Relation Name Comments Breast cancer Aunt Osteoporosis Aunt Skin cancer Daughter Father Hypertension Father Mother Hypertension Mother Osteoporosis Mother Cataracts Sister Diabetes Sister Skin cancer Sister Sleep apnea Son Anesthesia problems Neg Hx Relation Name Status Comments Aunt Daughter Father Mother Sister Son Social History Tobacco Use Types Packs/Day Years Used Date Smoking Tobacco: Former Smokeless Tobacco: Never Tobacco Cessation:Counseling Given: Not Answered Alcohol Use Standard Drinks/Week Comments Yes 4 (1 standard drink = 0.6 oz pur e alcohol) Humiliation, Afraid, Rape, and Kick questionnair e Answer Date Recorded Within the last year, have y ou been afraid of your partner or ex-partner? No 08/21/2022 Within the last year, have y ou been humiliated or emotionally abused in other ways by your partner or ex-partner? No 08/21/2022 Within the last year, have y ou been kicked, hit, slapped, or otherwise physically hurt by your partner or ex-partner? Patient declined 08/21/2022 Within the last year, have y ou been raped or forced to have any kind of sexual activity by your partner or ex-partner? No 08/21/2022 Social Connection and Isolat ion Panel [NHANES] Answer Date Recorded In a typical week, how many times do you talk on the phone with family, friends, or neighbors? More than three times a week 08/21/2022 How often do you get togethe r with friends or relatives? Twice a week 08/21/2022 How often do you attend chur or evangelical services? More than 4 times per year 08/21/2022 Do you belong to any clubs o r organizations such as baptism groups, unions, fraternal or athletic groups, or school groups? No 08/21/2022 How often do you attend meet ings of the clubs or organizations you belong to? Never 08/21/2022 Are you , , di vorced, , never , or living with a partner? 08/21/2022 AUDIT-C Answer Date Recorded Q1: How often do you have a drink containing alcohol? 4 or more times a week 08/21/2022 Q2: How many drinks containi ng alcohol do you have on a typical day when you are drinking? 1 or 2 Q3: How often do you have si x or more drinks on one occasion? Never 08/21/2022 Overall Financial Resource Strain (CARDIA) Answe r Date Recorded How hard is it for you to pa y for the very basics like food, housing, medical care, and heating? Not hard at all 08/21/2022 [facility] - Occupational Stress Questionnaire Answer Date Recorded Do you feel stress - tense, restless, nervous, or anxious, or unable to sleep at night because your mind is troubled all the time - these days? Only a little 08/21/2022 Exercise Vital Sign Answer Date Recorde d On average, how many days pe r week do you engage in moderate to strenuous exercise (like a brisk walk)? 1 day 08/21/2022 On average, how many minutes do you engage in exercise at this level? 10 min 08/21/2022 Hunger Vital Sign Answer Date Recorded Within the past 12 months, y ou worried that your food would run out before you got the money to buy more. Never true 08/22/19 Within the past 12 months, t he food you bought just didn't last and you didn't have money to get more. Never true 08/21/2022 PRAPARE - Transportation Answer Date Re corded In the past 12 months, has l ack of transportation kept you from medical appointments or from getting medications? No 07/31 In the past 12 months, has l ack of transportation kept you from meetings, work, or from getting things needed for daily living? No 08/21/2022 Housing Stability Vital Sign Answer Byron e Recorded In the last 12 months, was t here a time when you were not able to pay the mortgage or rent on time? No 08/21/2022 In the last 12 months, how many places have you lived? 2 08/21/2022 In the last 12 months, was t here a time when you did not have a steady place to sleep or slept in a skilled nursing (including now)? No 08/21/2022 Nutrition Answer Date Recorded On average, how many serving s of fruits and vegetables do you eat per day (serving size is equal to 1 cup or approximately the size of a tennis ball)? 0-1 08/21/2022 Dental Answer Date Recorded Dental: Regular Dentist Yes 11/18/19 Employment Answer Date Recorded Employment status Retired 08/21/2022 Education Answer Date Recorded What is the highest level of school you have completed or the highest degree you have received? 12th grade 11/17/2021 Comments No Sex and Gender Information Value Date Recorded Sex Assigned at Female 12/22/2020 10:41 AM CDT Legal Sex Female 7:34 AM SHIPPING AND RECEIVING MATERIAL HANDLER Gender Identity Not on file Sexual Orientation Not on file Last Filed Vital Signs Vital Sign Reading Time Taken Comments Blood Pressure 130/68 05/03/2024 10:30 AM SHIPPING AND RECEIVING MATERIAL HANDLER Pulse 59 05/03/2024 10:45 AM SHIPPING AND RECEIVING MATERIAL HANDLER Temperature 36.9 C (98.4 F) 05/03/2024 8:51 AM SHIPPING AND RECEIVING MATERIAL HANDLER Respiratory Rate 18 05/03/2024 8:51 AM SHIPPING AND RECEIVING MATERIAL HANDLER Oxygen Saturation 96% 05/03/2024 10: 45 AM SHIPPING AND RECEIVING MATERIAL HANDLER Inhaled Oxygen Concentration - - Weight 94.8 kg (208 lb 15.9 oz) 05/03/2024 8:52 AM SHIPPING AND RECEIVING MATERIAL HANDLER Height 160 cm (5' 2.99) 01/03/2022 8:46 AM CDT Body Mass Index 37.03 01/03/2022 8:46 AM CDT Plan of Treatment Upcoming Encounters Date Type Department Care Team (Late st Contact Info) Description 05/11/2024 10:30 AM SHIPPING AND RECEIVING MATERIAL HANDLER Comprehensive Visit Department of Physical Medicine and Rehabilitation in [place], [place] [address] [place] [phone] Provider, Pineda Placeholder Tina Costello P.T. [address] [place] [phone] Health Maintenance Due Date Last Done Comments Depression Monitoring (PHQ-9) 1940 Office Visit for Blood Pressure Check / Re-check 1940 COVID-19 Vaccine ( season) 2023 01/23/2023, 01/29/2022, 10/13/2021, Additional history exists Depression Monitoring (PHQ-9 for quality tracking) 04/01/2024 Fall Risk Screen (Annual) 04/01/2024 Creatinine Level (Kidney Function Test) 05/03/2025 05/03/2024, 04/08/2024, 10/10/2023, Additional history exists Potassium Level 05/03/2025 05/03/2024, 0 10/2024, 10/10/2023, Additional history exists Sodium Level 05/03/2025 05/03/2024, 0 10/2024, 10/10/2023, Additional history exists DTaP,Tdap,and Td Vaccines (2 - Td or Tdap) 01/01/2026 01/02/2016, 09/21/2005 Pneumococcal vaccine (50+ years) Completed 12/01/2014, 09/21/2005 Zoster Vaccines Completed 01/03/2023, 08/2022, 08/24/2011 RSV vaccine - (32-36 weeks) or 60+ years Completed 02/25/2023 Influenza Vaccine Completed 01/01/2024, , 02/02/2022, Additional history exists IPV Vaccines Aged Out No longer eligi ble based on patient's age to complete this topic Medical Devices Implanted Type Area Turbo Generator Oiler Device Identifier Shelf Expiration Date Model / Serial / Lot Hip Implant Hip Implant Right: Hip Description:2020 Knee Implant Knee Implant Right: Knee Description:Implanted 2010 [employer] [id number] +24.5d Implanted:Qty : 1 on 12/18/2021 by Osmar Masters M.D. at [facility] Ocular Lens Left: Eye [employer] [id number] 12/29/2024 [id number] / [id number] / [employer] Toric [id number] +24.5d Implanted:Qty : 1 on 01/03/2022 by Osmar Masters M.D. at [facility] Ocular Lens Right: [employer] [id number] 01/04/2025 [id number] / [id number] / Procedures Procedure Name Priority Date/Time Associated Diagnosis Comments C-REACTIVE PROTEIN (CRP), S/P STAT 05/03/2024 9:20 AM SHIPPING AND RECEIVING MATERIAL HANDLER COMPREHENSIVE METABOLIC PANEL, S/P STAT 05/03/2024 9:20 AM SHIPPING AND RECEIVING MATERIAL HANDLER CBC WITH DIFFERENTIAL, B STAT 05/03/2024 9:20 AM SHIPPING AND RECEIVING MATERIAL HANDLER ECG STAT 05/03/2024 8:45 AM SHIPPING AND RECEIVING MATERIAL HANDLER from Last 3 Months Results * CBC with Differential, Blood (05/03/2024 9:20 AM SHIPPING AND RECEIVING MATERIAL HANDLER) Hemoglobin 13.0 11.6 - 15.0 g/dL 05/03/2024 9:28 AM SHIPPING AND RECEIVING MATERIAL HANDLER CNFL Hematocrit 38.2 35.5 - 44.9 % 05/03/2024 9:28 AM SHIPPING AND RECEIVING MATERIAL HANDLER CNFL Erythrocytes 4.43 3.92 - 5.13 x10(12)/L 05/03/2024 9:28 AM SHIPPING AND RECEIVING MATERIAL HANDLER CNFL MCV 86.2 78.2 - 97.9 fL 05/03/2024 9:28 AM SHIPPING AND RECEIVING MATERIAL HANDLER CNFL RBC Distrib Width 12.9 12.2 - 16.1 % 05/03/2024 9:28 AM SHIPPING AND RECEIVING MATERIAL HANDLER CNFL Platelet Count 269 157 - 371 x10(9)/L 05/03/2024 9:28 AM SHIPPING AND RECEIVING MATERIAL HANDLER CNFL Leukocytes 6.4 3.4 - 9.6 x10(9)/L 05/03/2024 9:28 AM SHIPPING AND RECEIVING MATERIAL HANDLER CNFL Neutrophils 4.09 1.56 - 6.45 x10(9)/L 05/03/2024 9:28 AM SHIPPING AND RECEIVING MATERIAL HANDLER CNFL Lymphocytes 1.66 0.95 - 3.07 x10(9)/L 05/03/2024 9:28 AM SHIPPING AND RECEIVING MATERIAL HANDLER CNFL Monocytes 0.47 0.26 - 0.81 x10(9)/L 05/03/2024 9:28 AM SHIPPING AND RECEIVING MATERIAL HANDLER CNFL Eosinophils 0.17 0.03 - 0.48 x10(9)/L 05/03/2024 9:28 AM SHIPPING AND RECEIVING MATERIAL HANDLER CNFL Basophils <0.04 0.01 - 0.08 x10(9)/L 05/03/2024 9:28 AM SHIPPING AND RECEIVING MATERIAL HANDLER CNFL Blood (Blood, Venous) 05/03/2024 9:20 AM SHIPPING AND RECEIVING MATERIAL HANDLER 05/03/2024 9:23 AM SHIPPING AND RECEIVING MATERIAL HANDLER Chapo King P.A.-C., P.A. LAB BLOOD ADD-ON F inal Result Performing Organization Address City/State/[facility] Co de Phone Number [facility] [address] [place] [address], [facility] [place] [address] * CRP (C-Reactive Protein) (05/03/2024 9:20 AM SHIPPING AND RECEIVING MATERIAL HANDLER) C-Reactive Protein (CRP), P 3.2 <5.0 mg/L 05/03/2024 9:41 AM SHIPPING AND RECEIVING MATERIAL HANDLER CNFL Blood (Blood, Venous) 05/03/2024 9:20 AM SHIPPING AND RECEIVING MATERIAL HANDLER 05/03/2024 9:23 AM SHIPPING AND RECEIVING MATERIAL HANDLER us Chapo King P.A.-C., P.A. LAB BLOOD ADD-ON F inal Result [facility] [address] [place] [address], [facility] CNFL [facility] in [address] [address] * Comprehensive Metabolic Panel (05/03/2024 9:20 AM SHIPPING AND RECEIVING MATERIAL HANDLER) Pathologist [facility] Potassium, P 3.9 3.6 - 5.2 mmol/L 05/03/2024 9:41 AM SHIPPING AND RECEIVING MATERIAL HANDLER CNFL Sodium, P 137 135 - 145 mmol/L 05/03/2024 9:41 AM SHIPPING AND RECEIVING MATERIAL HANDLER CNFL Chloride, P 101 98 - 107 mmol/L 05/03/2024 9:41 AM SHIPPING AND RECEIVING MATERIAL HANDLER CNFL Bicarbonate, P 28 22 - 29 mmol/L 05/03/2024 9:41 AM SHIPPING AND RECEIVING MATERIAL HANDLER CNFL Anion Gap, P 8 7 - 15 05/03/2024 9:41 AM SHIPPING AND RECEIVING MATERIAL HANDLER CNFL BUN (Blood Urea Nitrogen), P 12 6 - 21 mg/dL 05/03/2024 9:41 AM SHIPPING AND RECEIVING MATERIAL HANDLER CNFL Creatinine 0.83 0.59 - 1.04 mg/dL 05/03/2024 9:41 AM SHIPPING AND RECEIVING MATERIAL HANDLER CNFL Estimated GFR (eGFR) 70 >=60 mL/min/BS A 05/03/2024 9:41 AM SHIPPING AND RECEIVING MATERIAL HANDLER CNFL Comment: Estimated GFR calculated using the 2020 CKD_EPI creatinine equation. Calcium, Total, P 9.0 8.8 - 10.2 mg/dL 05/03/2024 9:41 AM SHIPPING AND RECEIVING MATERIAL HANDLER CNFL Glucose, P 114 70 - 140 mg/dL 05/03/2024 9:41 AM SHIPPING AND RECEIVING MATERIAL HANDLER CNFL Protein, Total, P 6.7 6.3 - 7.9 g/dL 05/03/2024 9:41 AM SHIPPING AND RECEIVING MATERIAL HANDLER CNFL Albumin, P 3.7 3.5 - 5.0 g/dL 05/03/2024 9:41 AM SHIPPING AND RECEIVING MATERIAL HANDLER CNFL Aspartate Aminotransferase (AST), P 17 8 - 43 U/L 05/03/2024 9:41 AM SHIPPING AND RECEIVING MATERIAL HANDLER CNFL Alkaline Phosphatase, P 81 35 - 104 U/L 05/03/2024 9:41 AM SHIPPING AND RECEIVING MATERIAL HANDLER CNFL Alanine Aminotransferase (ALT), P 17 7 - 45 U/L 05/03/2024 9:41 AM SHIPPING AND RECEIVING MATERIAL HANDLER CNFL Bilirubin, Total, P 0.5 0.0 - 1.2 mg/dL 05/03/2024 9:41 AM SHIPPING AND RECEIVING MATERIAL HANDLER CNFL Blood (Blood, Venous) 05/03/2024 9:20 AM SHIPPING AND RECEIVING MATERIAL HANDLER 05/03/2024 9:23 AM SHIPPING AND RECEIVING MATERIAL HANDLER Chapo King P.A.-C., P.A. LAB BLOOD ADD-ON F inal Result [facility] [address] [place] [phone], [facility] CNFL [facility] [place] [address] * ECG 12 Lead (05/03/2024 8:45 AM SHIPPING AND RECEIVING MATERIAL HANDLER) Ventricular Rate ECG/Min 59 BPM MUSE IA Interval 216 ms MUSE QRSD Interval 136 ms MUSE QT Interval 474 ms MUSE QTC Interval 469 ms MUSE P Mcandrews 30 degrees MUSE R Mcandrews -43 degrees MUSE T Wave Mcandrews -16 degrees MUSE 05/03/2024 8:45 AM SHIPPING AND RECEIVING MATERIAL HANDLER 05/04/2024 8:15 AM SHIPPING AND RECEIVING MATERIAL HANDLER Impressions MUSE - 05/03/2024 9:14 AM SHIPPING AND RECEIVING MATERIAL HANDLER Sinus bradycardia with 1st degree A-V block Low lateral forces Low voltage QRS in chest leads Left axis deviation Right bundle branch block with secondary ST-T abnormalities Nonspecific T wave abnormality When compared with ECG of 03-Jul-2023 08:40, IA interval has increased Reviewed by ANGELA Cordero Narrative Procedure Note Constantine Elder M.D. - 05/04/2024 IMPRESSION: Sinus bradycardia with 1st degree A-V block Low lateral forces Low voltage QRS in chest leads Left axis deviation Right bundle branch block with secondary ST-T abnormalities Nonspecific T wave abnormality When compared with ECG of 03-Jul-2023 08:40, IA interval has increased Reviewed by ANGELA Cordero Chapo King P.A.-C., P.ALalo ECG ORDERABLES Ed ited Result - Final MUSE NA from Last 3 Months Insurance MEDICARE [facility] Care Teams Proposal Manager Relationship Specialty Start Date End Date Elsewhere, Pcp PCP - General Internal Medicine 09/01/18
--- OUTSIDE RECORDS SUMMARY | 2024-05-08 16:27 | XMS_ITS | Encounter Summary ---
Author Organization [facility] er Address [address] [place] [address] Care Team Providers Care Hang Gliding Instructor Name Role Phone Freda Rollins APRN Primary Care Provider Encounter Details Date Type Department Care Team (Late st Contact Info) Description 04/08/2024 10:45 AM STAGE DIRECTOR [facility] [place] [address] [place] [address] Acute pain of left shoulder Social History Tobacco Use Types Packs/Day Years [...] from your doctor or pharmacy? Rarely 04/08/2024 [facility] Utilities Answer Date Recorded In the past 12 months has [facility] [employer], gas, oil, or water [employer] threatened to shut off services in your [...] How often do you attend chur or oriental orthodox services? More than 4 times per year 04/08/2024 Do you belong to any clubs o r organizations such as zoroastrian groups, unions, fraternal or athletic groups, or [...] Date Recorded PHQ-9 Total Score 0 04/08/2024 [facility] - Occupational [...] place to sleep or slept in a correction (including now)? No 10/14/2022 Housing Stability Vital Sign Answer Byron e Recorded In the last 12 months, was t here a time when you were not able to pay the mortgage or rent on time? No 04/08/2024 In the past 12 months, how m any times have you moved where you were living? 0 04/08/2024 At any time in the past 12 m onths, were you homeless or living in a correction (including now)? No 04/08/2024 Interpersonal Safety Questionnaire [...] st Contact Info) Description 05/14/2024 10:40 AM STAGE DIRECTOR Office Visit [place] [address] [place] [address] [place] Villagran [place] [address] [place] [phone] documented as of this encounter Procedures Procedure Name Priority Date/Time Associated Diagnosis Comments ESTIMATED GLOMERULAR FILTRATION RATE (EGFR) Routine 04/08/2024 11:02 AM STAGE DIRECTOR Acute pain of left shoulder CBC BRANCH OFFICE W/DIFF Routine 04/08/2024 11:02 AM STAGE DIRECTOR Acute pain of left shoulder NT-PROBNP Routine 04/08/2024 11:02 AM STAGE DIRECTOR Acute pain of left shoulder TSH Routine 04/08/2024 11:02 AM STAGE DIRECTOR Acute pain of left shoulder HEMOGLOBIN A1C Routine 04/08/2024 11:02 AM STAGE DIRECTOR Acute pain of left shoulder BASIC METABOLIC PANEL Routine 04/08/2024 11:02 AM STAGE DIRECTOR Acute pain of left shoulder documented in this encounter Results * Estimated Glomerular Filtration Rate (eGFR) (04/08/2024 11:02 AM STAGE DIRECTOR) Estimated Glomerular Filtration Rate (eGFR) >60 04/08/2024 11:14 AM STAGE DIRECTOR [facility] Comment: GFR calculated from serum creatinine value Chronic Kidney Disease less than 60 mL/min/1.73 m2 Kidney Failure less than 15 mL/min/1.73 m2 Note: effective 03/28/2022: 2020 CKD-EPI Equation used 04/08/2024 11:0 2 AM STAGE DIRECTOR 04/08/2024 11:02 AM STAGE DIRECTOR Freda Rollins APRN LAB BLOOD ORDERABLES F inal Result [facility] [address] [place] [address] * (ABNORMAL) Basic metabolic panel (04/08/2024 11:02 AM STAGE DIRECTOR) Sodium 139 135 - 145 mmol/L 04/08/2024 11:14 AM STAGE DIRECTOR [facility] [place] Potassium 4.9 3.5 - 5.1 mmol/L 04/08/2024 11:14 AM STAGE DIRECTOR [facility] [place] Chloride 100 98 - 107 mmol/L 04/08/2024 11:14 AM STAGE DIRECTOR [facility] [place] CO2 32(H) 22 - 29 mmol/L 04/08/2024 11:14 AM [facility] [place] Creatinine 0.9 0.4 - 1.2 mg/dL 04/08/2024 11:14 AM STAGE DIRECTOR C [place] BUN 11 5 - 25 mg/dL 04/08/2024 11:14 AM STAGE DIRECTOR [facility] [place] Glucose 111(H) 70 - 100 mg/dL 04/08/2024 11:14 AM [facility] [place] Calcium, Total,S 10.6(H) 8.4 - 10.2 mg/dL 04/08/2024 11:14 AM [facility] [place] Anion Gap 7 4 - 13 04/08/2024 11:14 AM [facility] [place] Comment: The anion gap is calculated with the following formula: AGAP = Na ? (Cl + CO2). Fasting? Unknown 04/08/2024 11:02 AM [facility] [place] Blood 04/08/2024 11:0 2 AM STAGE DIRECTOR 04/08/2024 11:02 AM STAGE DIRECTOR us Freda Rollins APRN LAB BLOOD ORDERABLES F inal Result Performing Organization Address [facility]/ZIP Co de Phone Number [facility] [address] [place] [address] * NT-proBNP (04/08/2024 11:02 AM STAGE DIRECTOR) NT-proBNP 108 20 - 299 pg/mL 04/09/2024 2:28 PM STAGE DIRECTOR [facility] Comment: Cefoxitin sodium [...] additional testing. Blood 04/08/2024 11:0 2 AM STAGE DIRECTOR 04/09/2024 1:32 PM STAGE DIRECTOR us Freda Rollins APRN LAB BLOOD ORDERABLES F inal Result [facility] [address] [place] [address] * CBC Branch Off w/Diff (04/08/2024 11:02 AM STAGE DIRECTOR) WBC 7.9 3.5 - 10.5 K/uL 04/08/2024 11:04 AM STAGE DIRECTOR [facility] [place] RBC 4.79 3.90 - 5.00 M/uL 04/08/2024 11:04 AM STAGE DIRECTOR [facility] [place] Hemoglobin 13.7 12.0 - 15.5 g/dL 04/08/2024 11:04 AM STAGE DIRECTOR [facility] [place] Hematocrit 41.9 35.0 - 44.0 % 04/08/2024 11:04 AM STAGE DIRECTOR [facility] [place] Platelets 309 150 - 450 K/uL 04/08/2024 11:04 AM STAGE DIRECTOR [facility] [place] MCV 87.5 81.6 - 98.3 fL 04/08/2024 11:04 AM STAGE DIRECTOR [facility] [place] MCH 28.6 26.0 - 32.0 pg 04/08/2024 11:04 AM STAGE DIRECTOR [facility] [place] MCHC 32.7 32.0 - 36.0 g/dL 04/08/2024 11:04 AM STAGE DIRECTOR [facility] [place] RDW 12.8 11.9 - 15.5 % 04/08/2024 11:04 AM STAGE DIRECTOR [facility] [place] Lymphocytes % 22.1 % 04/08/2024 11:04 AM STAGE DIRECTOR [facility] [place] Mid-size Cells 9.4 % 04/08/2024 11:04 AM STAGE DIRECTOR [facility] [place] Granulocytes/Ashanti trophils 68.5 % 04/08/2024 11:04 AM STAGE DIRECTOR [facility] [place] Lymphocytes Absolute 1.7 0.9 - 2.9 K/uL 04/08/2024 11:04 AM STAGE DIRECTOR [facility] [place] MIDS Absolute 0.7 0.4 - 1.5 K/uL 04/08/2024 11:04 AM STAGE DIRECTOR [facility] [place] Granulocytes/Ashanti trophils Absolute 5.5 1.7 - 7.0 K/uL 04/08/2024 11:04 AM STAGE DIRECTOR [facility] [place] Blood (Blood, Venous) 04/08/2024 11:02 AM STAGE DIRECTOR 04/08/2024 11:02 AM STAGE DIRECTOR Freda Rollins APRN LAB BLOOD ORDERABLES F inal Result Performing Organization Address City/[facility]/ZIP Co de Phone Number [facility] [address] [place] [address] * TSH (04/08/2024 11:02 AM STAGE DIRECTOR) TSH, Sensitive 2.85 0.46 - 4.68 mIU/L 04/09/2024 4:10 PM STAGE DIRECTOR [facility] Comment: The results [...] additional testing. Blood 04/08/2024 11:0 2 AM STAGE DIRECTOR 04/09/2024 1:32 PM STAGE DIRECTOR Freda Rollins APRN LAB BLOOD ORDERABLES F inal Result Performing Organization Address City/[facility] Co de Phone Number [facility] [address] [place] [address] * (ABNORMAL) Hemoglobin A1c (04/08/2024 11:02 AM STAGE DIRECTOR) Hemoglobin A1C 5.9(H) 4.0 - 5.6 % A1C 04/09/2024 3:07 PM STAGE DIRECTOR [facility] Comment: Reference Range 4.0-5.6% is for non- adults >=18 yrs <5.6% Non-Diabetic 5.7-6.4% Increased risk of Diabetes >=6.5% Indicative of Diabetes <7.0% ADA goal for glycemic control Methodology may not detect all hemoglobin variants which can affect A1c results. Method certified by National Glycohemoglobin Standardization Program. Blood (Blood, Venous) 04/08/2024 11:02 AM STAGE DIRECTOR 04/09/2024 1:06 PM STAGE DIRECTOR us Freda Rollins FOREIGN LANGUAGES DEPARTMENT CHAIR LAB BLOOD ORDERABLES F inal Result [facility] [address] [place] [address] documented in this encounter Visit Diagnoses Diagnosis Acute pain of left shoulder documented in this encounter Care Teams Hang Gliding Instructor Relationship Specialty Start Date End Date Freda Rollins, FOREIGN LANGUAGES DEPARTMENT CHAIR [address] [place] [address] PCP - General 01/17/23 documented as of this encounter
--- OUTSIDE RECORDS SUMMARY | 2024-05-08 16:27 | XMS_ITS | Encounter Summary ---
Author Organization [facility] er Address [address] [place] [address] Care Team Providers Care Ripening Room Attendant Name Role Phone Freda Rollins APRN Primary Care Provider Reason for Referral * Cardiac (Routine) - Authorized Specialty Diagnoses / Procedures Referred By Contac t Referred To Contact Cardiology Diagnoses Dizziness RBBB Essential (primary) hypertension GENE (obstructive sleep apnea) Procedures Echocardiogram 2D Complete With Spec and Color Form Doppler Without Contrast Jose Villagran MD [address] [place] [address] Phone: tel: fax: Referral ID Status Reason Start Date Expiration Date V isits Requested Visits Authorized [id number] Authorized 04/09/2024 04/09/2025 1 1 FITS MANAGER Reason for Visit * Reason Comments Consult * Consultation (Routine) - Authorized Specialty Diagnoses / Procedures Referred By Contac t Referred To Contact Cardiology Diagnoses Dizziness Acute pain of left shoulder Acute electrocardiogram changes Freda Rollins APRN [address] [place] [address] Phone: tel: fax: [facility] [address] [place] [address] Phone: tel: fax: Referral ID Status Reason Start Date Expiration Date Visits Requested Visits Authorized [id number] Authorized Specialty Services Required 04/08/2024 04/09/2025 1 1 Encounter Details Date Type Department Care Team (Late st Contact Info) Description 04/09/2024 9:20 AM BENEFITS MANAGER Consult [place] [address] [place] [address] Jose Villagran MD [address] [place] [phone] Dizziness (Primary Dx); RBBB; Essential (primary) hypertension; Mixed hyperlipidemia; GENE (obstructive sleep apnea); Generalized anxiety disorder Social History Tobacco Use Types Packs/Day Years Used Date Smoking Tobacco: Former Smokeless Tobacco: Never Tobacco Cessation:Counseling Given: Not Answered Alcohol Use Standard Drinks/Week Comments Yes 7 (1 standard drink = 0.6 oz pur e alcohol) B1300 Health Literacy Answer Date Recor ded How often do you need to hav e someone help you when you read instructions, pamphlets, or other written material from your doctor or pharmacy? Rarely 04/08/2024 [employer] Utilities Answer Date Recorded In the past 12 months has e [employer], gas, oil, or water [employer] threatened to shut off services in your [...] often do you attend chur ch or taoist services? More than 4 times per year [...] Date Recorded PHQ-9 Total Score 0 04/08/2024 [facility] - Occupational Stress [...] any time in the past 12 m [facility], were you homeless or living in a [...] Sign Reading Time Taken Comments Blood Pressure 132/58 04/09/2024 9:01 AM BENEFITS MANAGER Pulse 71 04/09/2024 9:01 AM BENEFITS MANAGER Temperature 36.9 C (98.4 F) 04/09/2024 9:01 AM BENEFITS MANAGER Respiratory Rate 20 04/09/2024 9:01 AM BENEFITS MANAGER Oxygen Saturation 96% 04/09/2024 9:01 AM BENEFITS MANAGER Inhaled Oxygen Concentration - - Weight 92.2 kg (203 lb 4.8 oz) 04/09/2024 9:01 A M BENEFITS MANAGER Height 162.6 cm (5' 4) 04/09/2024 9:01 AM BENEFITS MANAGER Body Mass Index 34.9 04/09/2024 9:01 AM BENEFITS MANAGER documented in this encounter Progress Notes * Jose Villagran MD - 04/09/2024 9:20 AM CST CARDIOLOGY OUTPATIENT CONSULTATION NOTE REQUESTING PROVIDER Freda Rollins APRN [address] [place] [phone] PRIMARY PROVIDER Freda Rollins APRN CHIEF COMPLAINT/REASON FOR VISIT Episodic lightheadedness, abnormal ECG HISTORY OF PRESENT ILLNESS/PAST CARDIAC HISTORY Lupis Narayan is a 83 y.o. female who is here for evaluation of episodic lightheadedness, abnormal ECG. The patient has the following abbreviated history: Ilsa is a delightful active independent 83-year-old kindly referred by our colleague Sandra Hart with index symptoms of episodic lightheadedness/dizziness. Her past medical history is mostly pertinent for class I obesity, hypertension, hyperlipidemia, obstructive sleep apnea, but no previous history of cardiovascular disease. She does have a chronic right bundle branch block from previous electrocardiograms. She also has osteoarthritis of multiple territories. On a multisystem evaluation 04/08/2024, she reported the presence of left arm/shoulder ache that would be intermittent, nonexertional, not associated with evident trauma or injury. In addition, an episode of dizziness/lightheadedness at rest, which lasted several minutes roughly 15, and gradually the symptoms abated spontaneously. She did not experience rapid palpitations, shortness of breath, or chest discomfort at the time of dizziness. She has not passed out. With her usual level of physical activity, which appears to be primarily challenged by degenerativejoint disease, she voices no typical exertional angina, no reports on congestive symptoms particularly orthopnea or PND. The following portions of the patient's history were reviewed and updated as appropriate: allergies, current medications, family history, medical history, social history, surgical history and problemlist. ALLERGIES Allergies Allergen Reactions Latex Penicillins HOME MEDICATIONS Current Outpatient Medications Medication Sig Dispense Refill amLODIPine (NORVASC) 5 MG tablet TAKE 1 TABLET BY MOUTH TWICE A DAY FOR BLOOD PRESSURE. On file 180tablet 3 aspirin 81 MG chewable tablet Chew 1 tablet (81 mg total) 1 (one) time each day atorvastatin (LIPITOR) 20 MG tablet TAKE ONE TABLET BY MOUTH EVERY DAY FOR CHOLESTEROL on file. 90 tablet 3 calcium carbonate (OS-ALIDA) 600 MG tablet Take 1 tablet (600 mg total) by mouth 2 (two) times a day cholecalciferol (VITAMIN D-3) 2000 units tablet Take 1 tablet (2,000 Units total) by mouth 2 (two) times a day citalopram (CeleXA) 10 MG tablet TAKE ONE TABLET BY MOUTH EVERY DAY FOR DEPRESSION/ANXIETY. On file90 tablet 3 hydroCHLOROthiazide (HYDRODIURIL) 25 MG tablet TAKE ONE TABLET BY MOUTH EVERY DAY FOR BLOOD PRESSURE. On file. 90 tablet 3 meclizine (ANTIVERT) 25 MG tablet Take 1 tablet (25 mg total) by mouth 3 (three) times a day if needed for dizziness 90 tablet 3 potassium chloride (KLOR-CON M) 20 MEQ CR tablet Take 1 tablet (20 mEq total) by mouth 1 (one) timeeach day Do not crush or chew. On file. 90 tablet 3 ramipril (ALTACE) 10 MG capsule TAKE 1 CAPSULE BY MOUTH ONCE DAILY FOR BLOOD PRESSURE. On file. 90 capsule 3 traZODone (DESYREL) 50 MG tablet Take one and 1/2 tabs at night to assist with sleep 135 tablet 1 No current facility-administered medications for this visit. SOCIAL HISTORY reports that she has quit smoking. She has never used smokeless tobacco. She reports current alcohol use of about 7.0 standard drinks of alcohol per week. She reports that she does not use drugs. FAMILY HISTORY Noncontributory for dizziness PHYSICAL EXAMINATION VITAL SIGNS: Visit Vitals BP 132/58 (BP Location: Right arm, Patient Position: Sitting, BP Cuff Size: Adult long) Pulse 71 Temp 36.9 ??C (98.4 ??F) (Temporal) Resp 20 Weight: 92.2 kg (203 lb 4.8 oz) Body mass index is 34.9 kg/m??. Cardiovascular: regular rhythm, normal S1, normal S2, no clinically significant murmurs Pulmonary: Clear lungs, no rales, no wheezing, no rhonchi DIAGNOSTICS Lab Results Component Value Date WBC 7.9 04/08/2024 HGB 13.7 04/08/2024 HCT 41.9 04/08/2024 MCV 87.5 04/08/2024 PLT 309 04/08/2024 Chemistry Component Value Date/Time NA 139 04/08/2024 1102 K 4.9 04/08/2024 1102 CL 100 04/08/2024 1102 CO2 32 (H) 04/08/2024 1102 BUN 11 04/08/2024 1102 CREATININE 0.9 04/08/2024 1102 Component Value Date/Time CALCIUM 10.6 (H) 04/08/2024 1102 ALKPHOS 85 10/12/2022 1405 AST 26 10/12/2022 1405 ALT 22 10/12/2022 1405 BILITOT <0.7 10/12/2022 1405 CGFR Date Value Ref Range Status 10/09/2021 >60 Final AAGFR Date Value Ref Range Status 10/09/2021 >60 Final Comment: GFR calculated from serum creatinine value Chronic Kidney Disease less than 60 mL/min/1.73 m2 Kidney Failure less than 15 mL/min/1.73 m2 IDMS-Traceable MDRD Study Equation used. 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 Initially, the automated computed reading mentioned about an anterior infarction, but this was an erroneous interpretation. VISIT DIAGNOSES 1. Dizziness 2. RBBB 3. Essential (primary) hypertension 4. Mixed hyperlipidemia 5. GENE (obstructive sleep apnea) 6. Generalized anxiety disorder ASSESSMENT / PLAN We spent the majority of our time discussing about episodic lightheadedness, the different types and etiologies, with a special focus on cardiogenic origin. I explained to Ilsa that the main diligence from a CV standpoint is to be able to exclude the presence of a cardiogenic origin of symptoms, in particular a structural or electro pathologic cause. In the absence of cardiogenic primary origin of syncope, at least 75% of episodes relate to transient hypotension/and/or bradycardia with subsequent cerebral hypoperfusion. Most of them either neurocardiogenic (e.g. vasovagal) and/or orthostatic. We can evaluate cardiovascular structure with a comprehensive TTE, and electrical function with an ambulatory ECG monitor. I explained that the right bundle branch block and other components of the trifascicular block can be benign and not associated with heart block, ventricular standstill or other clear causes of lightheadedness, but at the end of the day they do represent degenerative conduction disease, emphasizing the importance of the ECG monitor. She voices understanding and is in agreement to investigate further. She asked the good question on whether or not carotid disease could contribute to symptoms, I explained that the presentation for atherosclerotic symptomatic carotid disease would be in the form of TIA and stroke, but not lightheadedness, dizziness, presyncope or syncope. From that perspective, sheis on low-dose aspirin and atorvastatin. Plan -48-hour Holter monitor -Comprehensive TTE, presyncope/syncope protocol -Return visit myself to review results MARGIN CODE [id number] Total time: 60 min, including electronic medical records and diagnostic testing review, direct [id number] contact, counseling and education, and preparation of clinical documentation. FITS MANAGER documented in this encounter Plan of Treatment Upcoming Encounters Date Type Department Care Team (Late st Contact Info) Description 05/14/2024 10:40 AM BENEFITS MANAGER Office Visit [place] [address] [address] Jose Villagran MD [address] [place] [phone] documented as of this encounter Procedures Procedure Name Priority Date/Time Associated Diagnosis Comments ECHOCARDIOGRAM 2D COMPLETE WITH SPEC AND COLOR FORM DOPPLER WITHOUT CONTRAST Routine 04/22/2024 12:09 PM BENEFITS MANAGER Dizziness RBBB Essential (primary) hypertension GENE (obstructive sleep apnea) documented in this encounter Results * Echocardiogram 2D Complete With Spec and Color Form Doppler Without Contrast (04/22/2024 12:09 PM BENEFITS MANAGER) Anatomical Region Laterality Modality Heart Ultrasound 04/22/2024 11:4 1 AM BENEFITS MANAGER us Jose Villagran MD CV ECHO PROCEDURES Fin al Result * Holter monitor - 48 hour (04/10/2024) us Jose Villagran MD CV CARDIAC SERVICES AR OCEDURES Final Result [facility] documented in this encounter Visit Diagnoses Diagnosis Dizziness- Primary Dizziness and giddiness RBBB Essential (primary) hypertension Unspecified essential hypertension Mixed hyperlipidemia GENE (obstructive sleep apnea) Obstructive sleep apnea (adult) (pediatric) Generalized anxiety disorder documented in this encounter Care Teams Ripening Room Attendant Relationship Specialty Start Date End Date Freda Rollins, POT RELINER [address] [place] [id number] PCP - General 01/17/23 documented as of this encounter
--- OUTSIDE RECORDS SUMMARY | 2024-05-08 16:27 | XMS_ITS | Continuity of Care Document ---
Author Organization [facility] Address [address] [place] [address] Phone Care Team Providers Care Mass Communications Professor Name Role Phone Travis Rush MD Unavailable Unavailable Procedures Procedure Date Office/OP Visit New Patient Level 3 Advance Directives Directive Yes / No Effective Date File Name No Information Encounters Encounter Description Practice Location Reason(s) For Visit Diagnoses Date Provider Providers Copied on Encounter Office/OP Visit New Patient Level [address] [facility], [address], [place], [place], [id number], [place] tel:[phone] [facility] No Information [address]. [address], [place], [id number] , [place]. tel:[phone] Referring Provider: Travis Rush, [address], [place], [id number]. tel:[phone] Family History Family Member Type Diagnosis Age At Onset No Information Payers Payer name Insurance type Covered green party ID Authordarina ticelia(s) Medicare Claims Admin MB [id number] [facility] [id number] Social History Type Description Quantity Date Captured Comments Sex Female Smoking Status No Information Chief Complaint And Reason For Visit No Information History Of Present Illness Encounter Date Complaint History Of Prese nt Illness No Information Instructions Date Instruction Additional Infor mation No Information Assessments Type Assessment Date No Information
--- OUTSIDE RECORDS SUMMARY | 2024-05-08 16:27 | XMS_ITS | Encounter Summary ---
Author Organization [facility] er Address [address] [place] [address] Care Team Providers Care Retail Sales Merchandiser Development Name Role Phone ShmuelbrendanFreda APRN Primary Care Provider Reason for Visit * Reason Comments Med Refill Encounter Details Date Type Department Care Team (Late st Contact Info) Description 06/15/2021 Refill [facility] [address] [place] [address] Harsha Covarrubias MD Essential hypertension Social History Tobacco Use Types Packs/Day Years Used Date Smoking Tobacco: Former Smokeless Tobacco: Never Alcohol Use Standard Drinks/Week Comments Yes 7 (1 standard drink = 0.6 oz pur e alcohol) Humiliation, Afraid, Rape, and Kick questionnair e Answer Date Recorded Within the last year, have y ou been afraid of your partner or ex-partner? No 06/22/2020 Within the last year, have y ou been humiliated or emotionally abused in other ways by your partner or ex-partner? No Within the last year, have y ou been kicked, hit, slapped, or otherwise physically hurt by your partner or ex-partner? No 06/22/2020 Within the last year, have y ou been raped or forced to have any kind of sexual activity by your partner or ex-partner? No 06/22/2020 Social Connection and Isolation Panel [NHANES] A nswer Date Recorded In a typical week, how many times do you talk on the phone with family, friends, or neighbors? Twice a week 06/23/19 How often do you get togethe r with friends or relatives? Twice a week 06/22/2020 How often do you attend chur ch or jewish services? 1 to 4 times per year 06/22/2020 Do you belong to any clubs o r organizations such as temple groups, unions, fraternal or athletic groups, or school groups? No 06/22/2020 How often do you attend meet ings of the clubs or organizations you belong to? Never 06/22/2020 Are you , , di vorced, , never , or living with a partner? 06/22/2020 Overall Financial Resource Strain (CARDIA) Answe r Date Recorded How hard is it for you to pa y for the very basics like food, housing, medical care, and heating? Not hard at all 06/22/2020 PHQ-2 Answer Date Recorded PHQ-9 Total Score 1 08/31/2020 [facility] of Occupat ional [facility] - Occupational Stress Questionnaire Answer Date Recorded Do you feel stress - tense, restless, nervous, or anxious, or unable to sleep at night because your mind is troubled all the time - these days? Not at all 06/22/2020 Exercise Vital Sign Answer Date Recorde d On average, how many days pe r week do you engage in moderate to strenuous exercise (like a brisk walk)? 0 days 06/22/2020 On average, how many minutes do you engage in exercise at this level? 0 min 06/22/2020 Hunger Vital Sign Answer Date Recorded Within the past 12 months, y ou worried that your food would run out before you got the money to buy more. Never true 06/23/19 21 Within the past 12 months, t he food you bought just didn't last and you didn't have money to get more. Never true 06/22/2020 PRAPARE - Transportation Answer Date Re corded In the past 12 months, has l ack of transportation kept you from medical appointments or from getting medications? No 05/31 In the past 12 months, has l ack of transportation kept you from meetings, work, or from getting things needed for daily living? No 06/22/2020 Comments Unknown Sex and Gender Information Value Date Recorded Sex Assigned at Not on file Legal Sex Female 7:46 PM CDT Gender Identity Not on file Sexual Orientation Not on file documented as of this encounter Miscellaneous Notes * Telephone Encounter - Lashon Cruz MA - 06/20/2021 9:48 AM CDT Requested Prescriptions Pending Prescriptions Disp Refills ??? amLODIPine (NORVASC) 5 MG tablet [Pharmacy Med Name: AMLODIPINE BESYLATE 5MG TABS] 180 tablet 3 Sig: TAKE ONE TABLET BY MOUTH TWICE A DAY FOR BLOOD PRESSURE E-Prescribing Status amLODIPine (NORVASC) 5 MG tablet Sig: Take ONE pill TWICE a day for blood pressure Sent to pharmacy as: amLODIPine Besylate 5 MG Oral Tablet (NORVASC) Class: Normal Notes to Pharmacy: Note the change in tablet size from 10 mg to 5 mg but also note the change from once a day to twice a day E-Prescribing Status: Receipt confirmed by pharmacy (03/20/2021 ??1:07 PM APPRAISAL MANAGER) documented in this encounter Plan of Treatment Upcoming Encounters Date Type Department Care Team (Late st Contact Info) Description 05/14/2024 10:40 AM APPRAISAL MANAGER Office Visit [facility] [address] [facility] 20 [place] [address] Jose Villagran MD [address] [place] [phone] documented as of this encounter Visit Diagnoses Diagnosis Essential hypertension Unspecified essential hypertension documented in this encounter Care Teams Retail Sales Merchandiser Development Relationship Specialty Start Date End Date Freda Rollins APRN [address] [place] [id number] PCP - General 01/17/23 documented as of this encounter
--- OUTSIDE RECORDS SUMMARY | 2024-05-08 16:27 | XMS_ITS | Clinical Summary ---
Author Organization [facility] Address [address] [place] [address] Care Team Providers Care Wood Heel Flap Inserter Name Role Phone Marcin Covarrubias MD Primary Care Provider [phone] Source Comments You are receiving this document as you are listed as the primary care provider,follow-up provider, or the patient has been referred to you for consultation.This is in compliance with the Medicare and[facility] EHR Incentive Program,which states Providers who transition their patient to another setting of careor provider of care or refers their patient to another provider of care shouldprovide summary care record for each transition of care or referral. [employer] Allergies Active Allergy Reactions Criticality Noted Date Comments Latex Rash 09/14/2020 Penicillins Confusion 09/14/2020 Medications Medication Sig Dispensed Refills Start Date End Date Status amLODIPine (NORVASC) 5 MG tablet Take 5 mg by mouth daily. Active CALCIUM CARBONATE-VITAMIN D OR Ac tive citalopram (CELEXA) 10 MG tablet Take 10 mg by mouth daily. Active hydroCHLOROthiazide (ORETIC) 25 MG tablet Take 25 mg by mouth daily. Active POTASSIUM CHLORIDE OR Act hammad ramipril (ALTACE) 10 MG capsule Take 10 mg by mouth daily. Active traZODone (DESYREL) 50 MG tablet Take 75 mg by mouth daily at bedtime. Active ibuprofen (MOTRIN) 600 MG tablet Take 1 Tablet by mouth every 6 hours as needed for Pain. 30 Tablet 09/15/2020 Active docusate sodium (COLACE) 100 MG capsule Take 1 Capsule by mouth two times daily as needed for Constipation. 30 Capsule 09/15/2020 Active HYDROmorphone (DILAUDID) 2 MG tablet Take 1 Tablet by mouth every 4 hours as needed for Pain. 30 Tablet 09/15/2020 Active ondansetron (ZOFRAN-ODT) 4 MG disintegrating tablet Take 1 Tablet by mouth every 8 hours as needed for Nausea (Vomiting). Dissolve tablet on tongue. 10 Tablet 09/15/2020 Active Social History Tobacco Use Types Packs/Day Years Used Date Smoking Tobacco: Never Assessed Sex and Gender Information Value Date Recorded Sex Assigned at Female 09/29/2020 7:54 PM CDT Gender Identity Female 09/29/2020 7:54 PM CDT Sexual Orientation Not on file Last Filed Vital Signs Vital Sign Reading Time Taken Comments Blood Pressure 117/85 09/15/2020 1:45 PM CDT Pulse 81 09/15/2020 1:45 PM CDT Temperature 36.6 C (97.8 F) 09/15/2020 1:45 PM CDT Respiratory Rate 16 09/15/2020 1:45 PM CDT Oxygen Saturation 95% 09/15/2020 1:45 PM CDT Inhaled Oxygen Concentration - - Weight 80.3 kg (177 lb) 09/15/2020 9:00 AM CDT Height 161.3 cm (5' 3.5) 09/15/2020 9:00 AM CDT Body Mass Index 30.86 09/15/2020 9:00 AM CDT Plan of Treatment Health Maintenance Due Date Last Done Comments Medicare Annual Wellness Visit 1940 Dexa 2005 Zoster/Shingles (2 of 3) 10/19/2011 08/24/2011 RSV (1 - 1-dose 75+ series) 09/13/2015 COVID-19 Vaccine (3 - season) 2023 06/17/2020, 05/27/2020 Influenza (#1) 2023 01/18/2020, 12/01, 01/14/2018, Additional history exists DTaP/Tdap/Td (2 - Tdap) 01/01/2026 01/02/2016, 09/21 Pneumococcal 65+ Yrs Completed 12/01/2014, 09/22/19 06 HepA Aged Out No longer eligi ble based on patient's age to complete this topic HepB Aged Out No longer eligi ble based on patient's age to complete this topic Hib Aged Out No longer eligi ble based on patient's age to complete this topic IPV (Polio) Aged Out No longer eligi ble based on patient's age to complete this topic MCV4 Aged Out No longer eligi ble based on patient's age to complete this topic Medical Devices Implanted Type Area Marine Farmer Device Identifier Shelf Expiration Date Model / Serial / Lot Scr Sftp 6.5x25 - [id number] Implanted:Qty : 1 on 09/15/2020 by Chencho Reid MD at [facility] Right: [employer] 06/09/2030 [id number] / 0 / [id number] Shell Acet G7 Ltd 56f - [id number] Implanted:Qty : 1 on 09/15/2020 by Chencho Reid MD at [facility] [employer] Right: [employer]oped[employer] 07/07/2030 [id number] / 0 / [id number] Liner Neut Arcomxl G7 36mm F - [id number] Implanted:Qty : 1 on 09/15/2020 by Chencho Reid MD at [facility] [employer] Right: [employer] 11/17/2024 [id number] / 0 / [id number] Hd Fem Cer Delta 36/0mm - [id number] Implanted:Qty : 1 on 09/15/2020 by Chencho Reid MD at [facility] Right: [employer] 06/07/2030 [id number] / 0 / [id number] Stem Prim Tprlc 62u065 - [id number] Implanted:Qty : 1 on 09/15/2020 by Chencho Reid MD at [facility] [employer] Right: [employer] Orthoped[employer] 06/13/2030 [id number] / 0 / [id number] Advance Directives * Full Code (Latest Code Status on File) Date Activated Date Inactivated Comments 09/15/2020 10:22 AM 09/15/2020 4:23 PM Care Teams Wood Heel Flap Inserter Relationship Specialty Start Date End Date Marcin Covarrubias MD [address] [facility] [place] [address] PCP - General Family Practice 09/14/21
--- OUTSIDE RECORDS SUMMARY | 2024-05-08 16:27 | XMS_ITS | Encounter Summary ---
Author Organization [facility] er Address [address] [place] [address] Care Team Providers Care Bit Shaver Name Role Phone ShmuelbrendanFreda APRN Primary Care Provider Reason for Visit * Reason Comments Med Refill Encounter Details Date Type Department Care Team (Late st Contact Info) Description 07/25/2021 Refill [place] [address] [place] [address] Harsha Covarrubias MD Essential hypertension Social History [...] often do you attend chur ch or mandaeism services? 1 to 4 times per year 06/22/2020 Do you belong to any clubs o r organizations such as jehovah's witness groups, unions, fraternal or athletic groups, or [...] Date Recorded PHQ-9 Total Score 1 08/31/2020 [facility] of Occupat ional [facility] - Occupational Stress Questionnaire Answer Date Recorded [...] encounter Miscellaneous Notes * Telephone Encounter - Maria Vilchis LPN - 07/26/2021 6:46 AM CDT Requested Prescriptions Pending Prescriptions Disp Refills ??? ramipril (ALTACE) 10 MG capsule [Pharmacy Med Name: RAMIPRIL 10MG CAPS] 90 capsule 3 Sig: TAKE ONE CAPSULE BY MOUTH EVERY DAY FOR BLOOD PRESSURE Last rx: ramipril (ALTACE) 10 MG capsule [[id number]] ?? Order Details Dose, Route, Frequency: As Directed Dispense Quantity: 90 capsule Refills: 3 ?? Sig: Take ONE capsule by mouth once daily for blood pressure ?? Start Date: 06/29/21 End Date: -- Written Date: 06/29/21 Expiration Date: 06/29/22 E-prescribed to [facility] [address] [place] [address], E- Prescribing Status: Receipt confirmed by pharmacy (06/29/2021 ??9:44 AM CDT). Request is from [facility]. Requesting pharmacy notified rx is available for transfer. documented in this encounter Plan of Treatment Upcoming Encounters Date Type Department Care Team (Late st Contact Info) Description 05/14/2024 10:40 AM TOOL DESIGNER APPRENTICE Office Visit [place] [address] [place] [address] Jose Villagran MD [address] [place] [phone] documented as of this encounter Visit Diagnoses Diagnosis Essential hypertension Unspecified essential hypertension documented in this encounter Care Teams Bit Shaver Relationship Specialty Start Date End Date Freda Rollins APRN [address] [place] [id number] PCP - General 01/17/23 documented as of this encounter
--- OUTSIDE RECORDS SUMMARY | 2024-05-08 16:27 | XMS_ITS | Encounter Summary ---
Author Organization [facility] er Address [address] [place] [address] Care Team Providers Care Food Stand Manager Name Role Phone Freda Rollins APRN Primary Care Provider Reason for Visit * Reason Onset Date Comments Med Management 04/07/2024 Dizziness 04/07/2024 Encounter Details Date Type Department Care Team (Late st Contact Info) Description 04/07/2024 Nurse Triage [place] [address] [place] [address] Freda Rollins NURSING ASSISTANTS TEACHER [address] [place] [phone] Social History Tobacco Use Types Packs/Day Years [...] from your doctor or pharmacy? Rarely 04/08/2024 [facility] Utilities Answer Date Recorded In the past 12 months has e [employer], gas, oil, or water company threatened to [...] How often do you attend chur or hoahaoism services? More than 4 times per year 04/08/2024 Do you belong to any clubs o r organizations such as catholic groups, unions, fraternal or athletic groups, or [...] Date Recorded PHQ-9 Total Score 0 04/08/2024 [facility] of Occupat ional Health - Occupational Stress [...] place to sleep or slept in a usp (including now)? No 10/14/2022 Housing Stability Vital Sign Answer Byron e Recorded In the last 12 months, was t here a time when you were not able to pay the mortgage or rent on time? No 04/08/2024 In the past 12 months, how m any times have you moved where you were living? 0 04/08/2024 At any time in the past 12 m [facility], were you homeless or living in a usp (including now)? No 04/08/2024 Interpersonal Safety Questionnaire [...] encounter Miscellaneous Notes * Telephone Encounter - Meliza Hogan RN - 04/08/2024 9:03 AM CST Patient conatacted, states her BP has been elevated. Patient was contacted regarding message from provider, states she was just going to go to the ED because her BP has been high. 165/95 last night before bed. Earlier this morning, 163/100. Now after meds 156/95. Pain in left shoulder Reason for Disposition Systolic BP >= 180 OR Diastolic >= 110 Protocols used: Blood Pressure - High-A-OH No dizziness today Patient call transferred to schedule appointment today with PCP. AVER APPRENTICE DECORATIVE * Telephone Encounter - Freda Rollins APRN - 04/08/2024 8:03 AM ENGRAVER APPRENTICE DECORATIVE Advised to schedule an appointment AVER APPRENTICE DECORATIVE * Telephone Encounter - Amira Srivastava RN - 04/07/2024 8:48 AM CST S = Patient has been intermittently dizzy B = Patient is prescribed amlodipine, hydrochlorothiazide and ramipril. She had one dizzy episode last week and one again this morning A = Patient felt dizzy this morning and her blood pressure was 153/95 prior to taking morning medication(s). Patient does not report any fainting, weakness, numbness, or headaches. She drinks fluids every day. She reports taking amlodipine and hydrochlorothiazide in the morning, and then she takes another dose of amlodipine and ramipril at night. R = Please advise on any dosage changes or if patient should take her medications at a different time of day. She used to receive a prescription of meclizine from another provider if PCP wants to consider that? Please call back with recommendations Reason for Disposition Taking a medicine that could cause dizziness (e.g., blood pressure medications, diuretics) Protocols used: [id number] AVER APPRENTICE DECORATIVE documented in this encounter Plan of Treatment Upcoming Encounters Date Type Department Care Team (Late st Contact Info) Description 05/14/2024 10:40 AM ENGRAVER APPRENTICE DECORATIVE Office Visit [facility] [facility] [address] [place] [address] Jose Villagran MD [address] [place] [phone] documented as of this encounter Visit Diagnoses Not on filedocumented in this encounter Care Teams Food Stand Manager Relationship Specialty Start Date End Date Freda Rollins APRN [address] [place] [id number] PCP - General 01/17/23 documented as of this encounter
--- OUTSIDE RECORDS SUMMARY | 2024-05-08 16:28 | XMS_ITS | Encounter Summary ---
Author Organization [facility] er Address [address] [place] [address] Care Team Providers Care Vacuum Repairer Name Role Phone Freda Rollins APRN Primary Care Provider Encounter Details Date Type Department Care Team (Late st Contact Info) Description 05/08/2024 Orders Only Niraj Marcelo [address] [place] [address] Freda Rollins APRN [address] [place] [address] Social History Tobacco Use Types Packs/Day Years Used Date Smoking Tobacco: Former Smokeless Tobacco: Never Alcohol Use Standard Drinks/Week Comments Not Currently [...] How often do you attend chur or adventism services? More than 4 times per year 04/08/2024 Do you belong to any clubs o r organizations such as voodoo groups, unions, fraternal or athletic groups, or [...] Date Recorded PHQ-9 Total Score 0 04/08/2024 [facility] of Occupat ional Health - Occupational Stress [...] place to sleep or slept in a prison (including now)? No 10/14/2022 Housing Stability Vital Sign Answer Byron e Recorded In the last 12 months, was t here a time when you were not able to pay the mortgage or rent on time? No 04/08/2024 In the past 12 months, how m any times have you moved where you were living? 0 04/08/2024 At any time in the past 12 m [facility], were you homeless or living in a prison (including now)? No 04/08/2024 Interpersonal Safety Questionnaire [...] st Contact Info) Description 05/14/2024 10:40 AM MANAGER PACU Office Visit [place] [address] [facility] [place] [address] Jose Villagran MD [address] [place] [phone] documented as of this encounter Visit Diagnoses Not on filedocumented in this encounter Care Teams Vacuum Repairer Relationship Specialty Start Date End Date Freda Rollins APRN [address] [place] [address] PCP - General 01/17/23 documented as of this encounter
--- OUTSIDE RECORDS SUMMARY | 2024-05-08 16:28 | XMS_ITS | Encounter Summary ---
Author Organization [facility] er Address [address] [place] [address] Care Team Providers Care Geriatrician Name Role Phone Freda Rollins APRN Primary Care Provider Reason for Referral * Consultation (Routine) - Authorized Specialty Diagnoses / Procedures Referred By Elham t Referred To Contact Diagnoses Dizziness Freda Rollins APRN [address] [place] [address] Phone: tel: fax: [address] [address] Phone: tel: Referral ID Status Reason Start Date Expiration Date V isits Requested Visits Authorized [id number] Authorized 05/05/2024 05/06/2025 1 1 HOUSE WORKER Reason for Visit * Reason Comments Follow-up In ED on 05/03/23 for dizziness. Encounter Details Date Type Department Care Team (Late st Contact Info) Description 05/05/2024 3:00 PM FISH HOUSE WORKER Office Visit [address] [facility] [address] [place] [address] Freda Rollins APRN [address] [place] [address] Dizziness (Primary Dx); Essential (primary) hypertension; Acute serous otitis media, recurrence not specified, unspecified laterality Social History Tobacco Use Types Packs/Day Years [...] your doctor or pharmacy? Rarely 04/08/2024 [facility] Utilities Answer Date Recorded In the past 12 months has e [employer], oil, or water [employer] threatened to shut off services in your [...] How often do you attend chur or confucianist services? More than 4 times per year [...] Date Recorded PHQ-9 Total Score 0 04/08/2024 [facility] of Occupat ional Health - Occupational Stress [...] place to sleep or slept in a [place] facility (including now)? No 10/14/2022 Housing Stability Vital Sign Answer Byron e Recorded In the last 12 months, was t here a time when you were not able to pay the mortgage or rent on time? No 04/08/2024 In the past 12 months, how m any times have you moved where you were living? 0 04/08/2024 At any time in the past [address] [facility], were you homeless or living in a [place] facility (including now)? No 04/08/2024 Interpersonal Safety Questionnaire [...] Comments Blood Pressure 144/68 05/05/2024 3:08 PM FISH HOUSE WORKER Pulse 84 05/05/2024 2:45 PM FISH HOUSE WORKER Temperature 37.1 C (98.8 F) 05/05/2024 2:45 PM FISH HOUSE WORKER Respiratory Rate 28 05/05/2024 2:45 PM FISH HOUSE WORKER Oxygen Saturation 96% 05/05/2024 2:45 PM FISH HOUSE WORKER Inhaled Oxygen Concentration - - Weight 92.3 kg (203 lb 8 oz) 05/05/2024 2:45 PM FISH HOUSE WORKER Height - - Body Mass Index 34.93 04/09/2024 9:01 AM FISH HOUSE WORKER documented in this encounter Patient Instructions * Patient Instructions* Freda Rollins APRN - 05/05/2024 3:00 PM FISH HOUSE WORKER Stop Hydrochlorothiazide, Start Losartan 25 mg daily Try Claritin 10 mg nightly for 14-30 nights [facility] HOUSE WORKER HOUSE WORKER HOUSE WORKER HOUSE WORKER HOUSE WORKER HOUSE WORKER * Attachments The following attachments cannot be sent through Care Everywhere. * How to Perform the Varinder Maneuver (Cambodian) documented in this encounter Progress Notes * Freda Rollins APRN - 05/05/2024 3:00 PM CST Subjective Patient ID: Lupis Narayan is a 83 y.o. female. Chief Complaint Patient presents with Follow-up In ED on 05/03/23 for dizziness. Ilsa presents with ongoing lightheadedness/dizziness. Ilsa ended up going into the ER on Saturday because of ongoing symptoms. At the ER, they told her to stop her hydrochlorothiazide and gave her IVfluids. They also discussed a healthy diet with her. Ilsa states she felt great yesterday but today she woke up and felt like her head was full. No dizziness or lightheadedness until she laid down at noon and then she had a few seconds of dizziness. She also reports that she had had some post nasal drainage which has been causing a slight cough after eating. Ilsa is drinking more water, decreasing caffeine intake. She is trying to eat better and does not drink alcohol. A provider reviewed the following portions of the patient's chart in this encounter and updated as appropriate: Tobacco Allergies Meds Problems Med Hx Surg Hx Fam Hx Review of Systems Constitutional: Negative. Negative for fatigue and fever. HENT: Positive for postnasal drip. Negative for congestion, rhinorrhea and sore throat. Eyes: Negative. Respiratory: Positive for cough. Negative for chest tightness, shortness of breath and wheezing. Cardiovascular: Negative. Negative for chest pain, palpitations and leg swelling. Gastrointestinal: Negative. Negative for abdominal pain, constipation, diarrhea, nausea and vomiting. Endocrine: Negative. Genitourinary: Negative. Negative for dysuria, frequency and urgency. Musculoskeletal: Negative. Negative for arthralgias, gait problem and joint swelling. Skin: Negative. Negative for color change and rash. Allergic/Immunologic: Negative. Neurological: Positive for dizziness and light-headedness. Negative for speech difficulty, numbnessand headaches. Hematological: Negative. Psychiatric/Behavioral: Negative. Negative for agitation, behavioral problems, confusion, self-injury, sleep disturbance and suicidal ideas. The patient is not nervous/anxious. Objective Physical Exam Constitutional: Appearance: Normal appearance. She is well-developed and well-groomed. HENT: Head: Normocephalic. Right Ear: Hearing, ear canal and external ear normal. A middle ear effusion is present. Left Ear: Hearing, ear canal and external ear normal. A middle ear effusion is present. Nose: Nose normal. Mouth/Throat: Lips: Anna. Mouth: Mucous membranes are moist. Pharynx: Oropharynx is clear. Uvula midline. Comments: clear post nasal drainage Cardiovascular: Rate and Rhythm: Normal rate and regular rhythm. Pulses: Normal pulses. Heart sounds: Normal heart sounds. Pulmonary: Effort: Pulmonary effort is normal. Breath sounds: Normal breath sounds and air entry. Neurological: General: No focal deficit present. Mental Status: She is alert and oriented to person, place, and time. Psychiatric: Mood and Affect: Mood normal. Behavior: Behavior normal. Behavior is cooperative. Thought Content: Thought content normal. Judgment: Judgment normal. Assessment/Plan Problem List Items Addressed This Visit Cardiac and Vasculature Essential (primary) hypertension Hypertension is worsening. Dietary sodium restriction. Weight loss. Regular aerobic exercise. Medication changes per orders. Blood pressure will be reassessed 6 weeks . Stop Hydrochlorothiazide, Start Losartan 25 mg daily Relevant Medications losartan (Cozaar) 25 MG tablet ENT Acute serous otitis media Try Claritin 10 mg nightly for 14-30 nights Relevant Medications loratadine (Claritin) 10 MG tablet Symptoms and Signs Dizziness - Primary Stop Hydrochlorothiazide Try Claritin 10 mg nightly for 14-30 nights Call [place], [place] and schedule physical therapy If stopping hydrochlorothiazide, starting Claritin and going to physical therapy does not improve symptoms. We will look at possible imaging of the head next. Relevant Orders Ambulatory External Referral [facility] Niraj Marcelo; Niraj Marcelo [place]; Physical Medicine and Rehab HOUSE WORKER HOUSE WORKER * Molly Gonzalez - 05/05/2024 3:00 PM CST Referral faxed to [facility] Physical Med/Rehab; fax [phone]. HOUSE WORKER * Molly Gonzalez - 05/05/2024 3:00 PM CST Referral re-faxed to [facility] PT; fax [phone]. HOUSE WORKER documented in this encounter Miscellaneous Notes * Assessment & Plan Note - Freda Rollins APRN - 05/05/2024 3:53 PM FISH HOUSE WORKER Associated Problem(s): Essential (primary) hypertension Hypertension is worsening. Dietary sodium restriction. Weight loss. Regular aerobic exercise. Medication changes per orders. Blood pressure will be reassessed 6 weeks . Stop Hydrochlorothiazide, Start Losartan 25 mg daily HOUSE WORKER * Assessment & Plan Note - Freda Rollins APRN - 05/05/2024 3:52 PM FISH HOUSE WORKER Associated Problem(s): Acute serous otitis media Try Claritin 10 mg nightly for 14-30 nights HOUSE WORKER * Assessment & Plan Note - Freda Rollins APRN - 05/05/2024 3:52 PM FISH HOUSE WORKER Associated Problem(s): Dizziness Stop Hydrochlorothiazide Try Claritin 10 mg nightly for 14-30 nights Call [facility] [place] and schedule physical therapy If stopping hydrochlorothiazide, starting Claritin and going to physical therapy does not improve symptoms. We will look at possible imaging of the head next. HOUSE WORKER HOUSE WORKER documented in this encounter Plan of Treatment Upcoming Encounters Date Type Department Care Team (Late st Contact Info) Description 05/14/2024 10:40 AM FISH HOUSE WORKER Office Visit [address] [facility] [address] [place] [address] Jose Villagran MD [address] [place] [address] Scheduled Referrals Name Type Priority Associated Diagnoses Order Schedule Ambulatory External Referral [facility]; [place], [place]; Physical Medicine and Rehab Outpatient Referral Routine Dizziness Ordered: 05/05/2024 documented as of this encounter Visit Diagnoses Diagnosis Dizziness- Primary Dizziness and giddiness Essential (primary) hypertension Unspecified essential hypertension Acute serous otitis media, recurrence not specified, unspecified laterality documented in this encounter Care Teams Geriatrician Relationship Specialty Start Date End Date Freda Rollins APRN [address] [place] [address] PCP - General 01/17/23 documented as of this encounter
--- OUTSIDE RECORDS SUMMARY | 2024-05-08 16:28 | XMS_ITS | Encounter Summary ---
Author Organization [facility] er Address [address] [place] [address] Care Team Providers Care Regional Marketing Manager Name Role Phone Freda Rollins APRN Primary Care Provider Reason for Visit * Reason Onset Date Comments Med Management 05/06/2024 Hypertension 05/06/2024 Encounter Details Date Type Department Care Team (Late st Contact Info) Description 05/06/2024 Telephone [place] [address] [place] [address] Freda Rollins MANAGER ROOM [address] [place] [address] Med Management; Hypertension Social History Tobacco Use Types Packs/Day Years [...] doctor or pharmacy? Rarely 04/08/2024 [facility] Utilities Answer Date Recorded In [...] How often do you attend chur or protestant services? More than 4 times per year 04/08/2024 Do you belong to any clubs o r organizations such as yazdanism groups, unions, fraternal or athletic groups, or [...] Date Recorded PHQ-9 Total Score 0 04/08/2024 [facility] of Occupat ional Health - Occupational Stress [...] place to sleep or slept in a residential (including now)? No 10/14/2022 Housing Stability Vital Sign Answer Byron e Recorded In the last 12 months, was t here a time when you were not able to pay the mortgage or rent on time? No 04/08/2024 In the past 12 months, how m any times have you moved where you were living? 0 04/08/2024 At any time in the past 12 m [facility], were you homeless or living in a residential (including now)? No 04/08/2024 Interpersonal Safety Questionnaire [...] encounter Miscellaneous Notes * Telephone Encounter - Amira Srivastava RN - 05/06/2024 10:53 AM CST Patient was seen yesterday 05-05-24 for dizziness and hypertension. Patient was doing OK in terms of dizziness until this morning. She is now dizzy and has been checking her blood pressure all mornin/89, pulse 63, took medications (losartan, claritin, and meclizine) after this 154/90, pulse 53 158/84, pulse 63 160/104, pulse 73, while talking during phone call Patient is not having any difficulty breathing, chest pain, or headaches at this time. Her physicaltherapy appointment not scheduled yet (referral still pending). Does PCP want her to be seen again or any recommendations? FF COMPILING CLERK documented in this encounter Plan of Treatment Upcoming Encounters Date Type Department Care Team (Late st Contact Info) Description 05/14/2024 10:40 AM TARIFF COMPILING CLERK Office Visit [place] [address] [facility] [place] [address] Jose Villagran MD [address] [place] [address] documented as of this encounter Visit Diagnoses Not on filedocumented in this encounter Care Teams Regional Marketing Manager Relationship Specialty Start Date End Date Freda Rollins APRN [address] [place] [address] PCP - General 01/17/23 documented as of this encounter
--- OUTSIDE RECORDS SUMMARY | 2024-05-08 16:28 | XMS_ITS | Encounter Summary ---
Author Organization [facility] er Address [address] [place] [address] Care Team Providers Care Coroner'S Juror Name Role Phone Freda Rollins APRN Primary Care Provider Reason for Referral * Consultation (Routine) - Authorized Specialty Diagnoses / Procedures Referred By Elham zapata Referred To Contact Physical Therapy Diagnoses Dizziness Freda Rollins APRN [address] [place] [address] Phone: tel: fax: [address] [address] Phone: tel: Referral ID Status Reason Start Date Expiration Date V isits Requested Visits Authorized [id number] Authorized 05/06/2024 05/06/2025 1 1 Encounter Details Date Type Department Care Team (Late st Contact Info) Description 05/06/2024 Orders Only [place] [address] [facility] [address] [place] [address] Freda Rollins APRN [address] [place] [address] Dizziness (Primary Dx) Social History Tobacco Use Types Packs/Day Years [...] from your doctor or pharmacy? Rarely 04/08/2024 [facility] Utilities Answer Date Recorded In [...] week 04/08/2024 How often do you attend [facility] or shinto services? More than 4 times per year 04/08/2024 Do you belong to any clubs o r organizations such as mosque groups, unions, fraternal or athletic groups, or [...] Date Recorded PHQ-9 Total Score 0 04/08/2024 [facility] of Occupat ional [facility] - Occupational Stress Questionnaire Answer Date [...] place to sleep or slept in a longterm (including now)? No 10/14/2022 Housing Stability Vital Sign Answer Byron e Recorded In the last 12 months, was t here a time when you were not able to pay the mortgage or rent on time? No 04/08/2024 In the past 12 months, how m any times have you moved where you were living? 0 04/08/2024 At any time in the past 12 m [facility], were you homeless or living in a longterm (including now)? No 04/08/2024 Interpersonal Safety Questionnaire [...] on file documented as of this encounter Progress Notes * Freda Rollins APRN - 05/06/2024 3:07 PM CST am documented in this encounter Plan of Treatment Upcoming Encounters Date Type Department Care Team (Late st Contact Info) Description 05/14/2024 10:40 AM AVP Office Visit [address] [address] [place] [address] [place] [address] Scheduled Referrals Name Type Priority Associated Diagnoses Order Schedule Ambulatory Referral for External Physical Therapy Outpatient Referral Routine Dizziness Ordered: 05/06/2024 documented as of this encounter Visit Diagnoses Diagnosis Dizziness- Primary Dizziness and giddiness documented in this encounter Care Teams Coroner'S Juror Relationship Specialty Start Date End Date Freda Rollins APRN [address] [place] [address] PCP - General 01/17/23 documented as of this encounter
--- OUTSIDE RECORDS SUMMARY | 2024-05-08 16:28 | XMS_ITS | Encounter Summary ---
Author Organization [facility] er Address [address] [place] [address] Care Team Providers Care Coating Machine Feeder Name Role Phone Freda Rollins APRN Primary Care Provider Reason for Visit * Cardiac (Routine) - Authorized Specialty Diagnoses / Procedures Referred By Contac t Referred To Contact Cardiology Diagnoses Dizziness RBBB Essential (primary) hypertension GENE (obstructive sleep apnea) Procedures Echocardiogram 2D Complete With Spec and Color Form Doppler Without Contrast Jose Villagran MD [address] [place] [address] Phone: tel: fax: Referral ID Status Reason Start Date Expiration Date V isits Requested Visits Authorized [id number] Authorized 04/09/2024 04/09/2025 1 1 Encounter Details Date Type Department Care Team (Latest Contact Info) Description 04/22/2024 11:33 AM SURVEY TECHNICIAN - 04/22/2024 11:59 PM SURVEY TECHNICIAN Hospital Encounter [facility] [address] [place] [address] Discharge Disposition: Home or Self Care Social History Tobacco Use Types Packs/Day Years [...] from your doctor or pharmacy? Rarely 04/08/2024 [facility] Utilities Answer Date Recorded In the past 12 months has th e electric, gas, oil, or water [employer] threatened to shut off services in your [...] How often do you attend chur or jewish services? More than 4 times per year 04/08/2024 Do you belong to any clubs o r organizations such as congregation groups, unions, fraternal or athletic groups, or [...] Date Recorded PHQ-9 Total Score 0 04/08/2024 [facility] - Occupational Stress Questionnaire Answer Date Recorded [...] place to sleep or slept in a detention (including now)? No 10/14/2022 Housing Stability Vital Sign Answer Byron e Recorded In the last 12 months, was t here a time when you were not able to pay the mortgage or rent on time? No 04/08/2024 In the past 12 months, how m any times have you moved where you were living? 0 04/08/2024 At any time in the past 12 m [facility], were you homeless or living in a detention (including now)? No 04/08/2024 Interpersonal Safety Questionnaire Answer Date Recorded How often does anyone, inclu ding family and friends, physically hurt you? Never [...] on file documented as of this encounter Medications at Time of Discharge amLODIPine (NORVASC) 5 MG tabletIndications:E ssential hypertension TAKE 1 TABLET BY MOUTH TWICE A DAY FOR BLOOD PRESSURE. On file 180 tablet 3 10/25/2023 aspirin 81 MG chewable tablet Chew 1 tablet (81 mg total) 1 (one) time each day atorvastatin (LIPITOR) 20 MG tabletIndications:M ixed hyperlipidemia TAKE ONE TABLET BY MOUTH EVERY DAY FOR CHOLESTEROL on file. 90 tablet 3 10/25/2023 calcium carbonate (OS-ALIDA) 600 MG tablet Take 1 tablet (600 mg total) by mouth 2 (two) times a day cholecalciferol (VITAMIN D-3) 2000 units tablet Take 1 tablet (2,000 Units total) by mouth 2 (two) times a day citalopram (CeleXA) 10 MG tabletIndications:A nxiety and depression TAKE ONE TABLET BY MOUTH EVERY DAY FOR DEPRESSION/ANXIE TY. On file 90 tablet 3 10/25/2023 meclizine (ANTIVERT) 25 MG tabletIndications:D izziness Take 1 tablet (25 mg total) by mouth 3 (three) times a day if needed for dizziness 90 tablet 3 04/08/2024 04/08/19 26 potassium chloride (KLOR-CON M) 20 MEQ CR tabletIndications:E ssential (primary) hypertension Take 1 tablet (20 mEq total) by mouth 1 (one) time each day Do not crush or chew. On file. 90 tablet 3 10/25/2023 10/25/19 25 ramipril (ALTACE) 10 MG capsuleIndications: Essential hypertension TAKE 1 CAPSULE BY MOUTH ONCE DAILY FOR BLOOD PRESSURE. On file. 90 capsule 3 10/25/2023 traZODone (DESYREL) 50 MG tabletIndications:S leep disturbance Take one and 1/2 tabs at night to assist with sleep 135 tablet 1 03/23/2024 hydroCHLOROthiazide (HYDRODIURIL) 25 MG tabletIndications:E ssential hypertension TAKE ONE TABLET BY MOUTH EVERY DAY FOR BLOOD PRESSURE. On file. 90 tablet 3 10/25/2023 05/05/19 25 documented as of this encounter Plan of Treatment Upcoming Encounters Date Type Department Care Team (Late st Contact Info) Description 05/14/2024 10:40 AM SURVEY TECHNICIAN Office Visit [place] [address] [place] [address] Jose Villagran MD [address] [place] [address] documented as of this encounter Procedures Procedure Name Priority Date/Time Associated Diagnosis Comments ECHOCARDIOGRAM 2D COMPLETE WITH SPEC AND COLOR FORM DOPPLER WITHOUT CONTRAST Routine 04/22/2024 12:09 PM SURVEY TECHNICIAN Dizziness RBBB Essential (primary) hypertension GENE (obstructive sleep apnea) documented in this encounter Results * Echocardiogram 2D Complete With Spec and Color Form Doppler Without Contrast (04/22/2024 12:09 PM SURVEY TECHNICIAN) Anatomical Region Laterality Modality Heart Ultrasound 04/22/2024 11:4 1 AM SURVEY TECHNICIAN Jose Villagran MD CV ECHO PROCEDURES Fin al Result documented in this encounter Visit Diagnoses Not on filedocumented in this encounter Care Teams Coating Machine Feeder Relationship Specialty Start Date End Date Freda Rollins APRN [address] [place] [address] PCP - General 01/17/23 documented as of this encounter
--- OUTSIDE RECORDS SUMMARY | 2024-05-08 16:28 | XMS_ITS | Encounter Summary ---
Author Organization [facility] er Address [address] [place] [address] Care Team Providers Care Service Center Coordinator Name Role Phone Freda Rollins APRN Primary Care Provider Reason for Visit * Reason Comments Holter Monitor Placement Encounter Details Date Type Department Care Team (Late st Contact Info) Description 04/10/2024 9:20 AM SOFTWARE DEVELOPER CONSULTANT Clinical Support [place] [address] [place] [address] Social History Tobacco Use Types Packs/Day Years [...] Recorded In the past 12 months has [employer], oil, or water [employer] threatened to shut off services in your [...] How often do you attend chur or baptist services? More than 4 times per year 04/08/2024 Do you belong to any clubs o r organizations such as faith groups, unions, fraternal or athletic groups, or [...] Date Recorded PHQ-9 Total Score 0 04/08/2024 [facility] of Occupat ional Health - Occupational [...] any time in the past 12 m [facility], were you homeless or living in [...] as of this encounter Progress Notes * Yaneth Patel RN - 04/10/2024 9:20 AM CST Holter # [id number] placed for [address] Chaney (Order # [id number]). Procedure verbally explained to patient and verbal consent was obtained. Patient left without any further questions. Patient agreed to bring journal and holter monitor back to the [facility] clinic on SaturdayApril 13. WARE DEVELOPER CONSULTANT * Ivelisse Rea RN - 04/10/2024 9:20 AM CST Nurse Note Holter monitor returned and downloaded. WARE DEVELOPER CONSULTANT documented in this encounter Plan of Treatment Upcoming Encounters Date Type Department Care Team (Late st Contact Info) Description 05/14/2024 10:40 AM SOFTWARE DEVELOPER CONSULTANT Office Visit [address] [address] Jose Villagrna MD [address] [place] [address] documented as of this encounter Visit Diagnoses Not on filedocumented in this encounter Care Teams Service Center Coordinator Relationship Specialty Start Date End Date Freda Rollins APRN [address] [place] [address] PCP - General 01/17/23 documented as of this encounter
--- OUTSIDE RECORDS SUMMARY | 2024-05-08 16:28 | XMS_ITS | Encounter Summary ---
Author Organization [facility] er Address [address] [place] [address] Care Team Providers Care Microfilm Technician Name Role Phone Freda Rollins APRN Primary Care Provider Encounter Details Date Type Department Care Team (Latest Contact Info) Description 04/21/2024 7:05 AM IN FLIGHT CREW MEMBER Clinical Support [facility] [address] [place] [address] [phone] Essential (primary) hypertension (Primary Dx) Social History Tobacco Use Types [...] from your doctor or pharmacy? Rarely 04/08/2024 [facility] Utilities Answer Date Recorded In the past 12 months has [facility] [employer], oil, or water [employer] threatened to shut off services in your [...] How often do you attend chur or pentecostalism services? More than 4 times per year [...] Date Recorded PHQ-9 Total Score 0 04/08/2024 [facility] - Occupational Stress [...] in a skilled nursing (including now)? No 10/14/2022 Housing Stability Vital Sign Answer Byron e Recorded In the last 12 months, was t here a time when you were not able to pay the mortgage or rent on time? No 04/08/2024 In the past 12 months, how m any times have you moved where you were living? 0 04/08/2024 At any time in the past 12 m [facility], were you homeless or living in a skilled nursing (including now)? No 04/08/2024 Interpersonal Safety Questionnaire [...] Sign Reading Time Taken Comments Blood Pressure 137/82 04/22/2024 7:13 AM IN FLIGHT CREW MEMBER Pulse - - Temperature - - Respiratory Rate - - Oxygen Saturation - - Inhaled Oxygen Concentration - - Weight - - Height - - Body Mass Index - - documented in this encounter Progress Notes * Ge Williamsonir - 04/21/2024 7:05 AM CST RPM enrollment date: 2023-10-25 Date of last nurse review: 2024-03-16 Months attempted patient contact but unable to review in 2024: No months missed Results summary: # of new BP results: 40 # of new HR results: 40 Average BP for this review: 137/82 Average HR for this review: 61 bpm Average BP for last review: 131/77 Average HR for last review: 57 bpm Patient has submitted 40 blood pressure and 40 heart rate readings since the last review on Mar 16, 2024. The blood pressure results range from 120/71 to 165/100 with an average of 137/82. The heart rate results range from 50 to 88 bpm with an average of 61 bpm. Called patient and reviewed results. Despite of Pt having up and down readings, most of her readings ranging from elevated to HTN 1and HR at time is bradycardic, but she denied any distress. Based on the results of this review, Ptdoes not meet the criteria for escalation at this time. Patient demographics, history, and medications: Patient is a 83 year old Female. Patient is under the care of Freda Rollins at [facility]. Pt is doing well. She had an appt with Dr. Jones and appt went well. She will will also do a follow up with a sheet metal supervisor. She denied an respiratory or cardiac distress. Pt taking Calcium, Vitamin D, Amlodipine, Citalopram, Baby Aspirin, Potassium Chloride, HCTZ, Ramipril, and Atorvastatinwithout adverse reaction or recent dosage adjustment. Pt will have an appt with her sheet metal supervisor tomorrow. Education and recommendations: Advised that Pt test BP once daily or as recommended by provider. The nurse explained the importance of daily monitoring to Pt. The information provided by the nurse was received well. Pt understands the need to be as relaxed as possible while checking BP. Pt verbalized understanding and acknowledged the nurse's recommendations. Pt denies having any difficulties with operating the device and the cuff is fitting properly. Contact info for Ge regarding any questions about devices or RPM program. Will continue to reach out for monthly review. Submitted by: Arlette Diez LPN, Ge RPM Nurse FLIGHT CREW MEMBER * Gladis García, RN - 04/21/2024 7:05 AM CST Ge RPM Review: Monthly Reviewed the results and progress note by Ge. Average blood pressure recorded: Visit Vitals BP 137/82 Interpretation: Within normal limits Plan: Continue to review on a monthly basis FLIGHT CREW MEMBER documented in this encounter Plan of Treatment Upcoming Encounters Date Type Department Care Team (Late st Contact Info) Description 05/14/2024 10:40 AM IN FLIGHT CREW MEMBER Office Visit [place] [address] [facility] [address] [place] [address] Jose Villagran MD [address] [place] [phone] documented as of this encounter Visit Diagnoses Diagnosis Essential (primary) hypertension- Primary Unspecified essential hypertension documented in this encounter Care Teams Microfilm Technician Relationship Specialty Start Date End Date Freda Rollins APRN [address] [place] [id number] PCP - General 01/17/23 documented as of this encounter
--- OUTSIDE RECORDS SUMMARY | 2024-05-08 16:29 | XMS_ITS | Encounter Summary ---
Author Organization [facility] Address [address] [place] [address] Care Team Providers Care Social Media Campaign Manager Name Role Phone Elsewhere, Pcp Primary Care Provider Unavailabl e Reason for Visit * Reason Comments Dizziness Encounter Details Date Type Department Care Team (Late st Contact Info) Description 05/03/2024 8:38 AM ELA TEACHER - 05/03/2024 10:53 AM [facility] Emergency [facility] [address] [place] [address] [place] [phone] Chapo King, PLaloA.-C., P.A. [address] [place] [phone] Lightheadedness (Primary Dx) Discharge Disposition: Home or Self Care Social History Tobacco Use Types Packs/Day Years Used Date Smoking Tobacco: Former Smokeless Tobacco: Never Alcohol Use Standard Drinks/Week Comments Yes 4 [...] any clubs o r organizations such as presybeterian groups, unions, fraternal or athletic groups, or [...] when you are drinking? 1 or 2 3 Q3: How often do you have si x or more drinks on one occasion? Never 08/21/2022 Overall Financial Resource Strain (CARDIA) Answe r Date Recorded How hard is it for you to pa y for the very basics like food, housing, medical care, and heating? Not hard at all 08/21/2022 [facility] - Occupational Stress Questionnaire Answer Date [...] place to sleep or slept in a fci (including now)? No 08/21/2022 Nutrition Answer Date [...] AM CDT Legal Sex Female 7:34 AM ELA TEACHER Gender Identity Not on file Sexual Orientation Not on file documented as of this encounter Last Filed Vital Signs Vital Sign Reading Time Taken Comments Blood Pressure 130/68 05/03/2024 10:30 AM ELA TEACHER Pulse 59 05/03/2024 10:45 AM ELA TEACHER Temperature 36.9 C (98.4 F) 05/03/2024 8:51 AM ELA TEACHER Respiratory Rate 18 05/03/2024 8:51 AM ELA TEACHER Oxygen Saturation 96% 05/03/2024 10: 45 AM ELA TEACHER Inhaled Oxygen Concentration - - Weight 94.8 kg (208 lb 15.9 oz) 05/03/2024 8:52 AM ELA TEACHER Height - - Body Mass Index 37.03 01/03/2022 8:46 AM CDT documented in this encounter Discharge Instructions * Discharge Instructions* Chapo King P.A.-C., P.A. - 05/03/2024 10:36 AM ELA TEACHER Make sure to drink plenty of fluids throughout the day every day. Hold the hydrochlorothiazide until you meet with your doctor. Make sure to protect against falls by using either a walker or a cane. Schedule an appointment in clinic for later next week. Come back to the emergency department if you worsen. TEACHER * Attachments The following attachments cannot be sent through Care Everywhere. * Near-Syncope [id number] documented in this encounter Medications at Time of Discharge acetaminophen (TYLENOL) 500 mg tablet Take 500 mg by mouth 3 (three) times a day. 06/27/2013 amLODIPine (NORVASC) 10 mg tablet Take 10 mg by mouth 2 (two) times a day. 09/10/2018 aspirin 81 mg chewable tablet Chew 1 tablet daily. atorvastatin (LIPITOR) 20 mg tablet Take 1/2 pill a day for the first ten days then one pill a day thereafter for cholesterol 10/13/2021 calcium carbonate 1,500 mg (600 mg calcium) tablet Take 1,200 mg by mouth daily. 07/24/2010 cholecalciferol (VITAMIN D3) 2,000 Unit tablet Take 2,000 Units by mouth 2 (two) times a day. citalopram (CeleXA) 10 mg tablet Take 10 mg by mouth daily. 07/03/2019 hydroCHLOROthiaz roverto (HYDRODIURIL) 25 mg tablet Take ONE a day for blood pressure 03/20/2021 ketorolac (ACULAR) 0.5 % ophthalmic solution Administer 1 drop into the left eye 4 (four) times a day. Begin 12/16/2021. Follow schedule provided. 5 mL 1 12/16/2021 ketorolac (ACULAR) 0.5 % ophthalmic solution Administer 1 drop into the right eye 4 (four) times a day. Begin 01/01/2022. Follow schedule provided. 5 mL 1 01/01/2022 moxifloxacin (VIGAMOX) 0.5 % ophthalmic solution Administer 1 drop into the right eye 4 (four) times a day. Begin 01/01/2022. Follow schedule provided. 3 mL 1 01/01/2022 potassium chloride (KLOR-CON M/KDUR) 20 mEq ER tablet 11/03/2021 prednisoLONE acetate (PRED FORTE) 1 % ophthalmic suspension Administer 1 drop into the left eye 4 (four) times a day. Begin 12/16/2021. Follow schedule provided. 10 mL 1 12/16/2021 prednisoLONE acetate (PRED FORTE) 1 % ophthalmic suspension Administer 1 drop into the right eye 4 (four) times a day. Begin 01/01/2022. Follow schedule provided. 10 mL 1 01/01/2022 ramipriL (ALTACE) 10 mg capsule Take 20 mg by mouth daily. 07/31/2019 traZODone (DESYREL) 50 mg tablet Take 50 mg by mouth at bedtime as needed. 08/05/2019 documented as of this encounter ED Notes * Chapo King P.A.-C., P.A. - 05/03/2024 9:22 AM CST SUBJECTIVE CHIEF COMPLAINT/REASON FOR VISIT Dizziness HISTORY OF PRESENT ILLNESS Lupis Narayan is an 83-year-old female that presents with lightheadedness. She states that she woke up early this morning feeling very lightheaded and presyncopal. She denies any room spinning and states that it felt different than vertigo which she has had in the past. She has been having t hese episodes recently for the past month or so. The lightheadedness and dizziness is intermittent.About a month ago she had left leg pain and swelling but that has resolved. She takes medications for her blood pressure but otherwise she is fairly healthy. She recently had an echocardiogram and a Holter monitor that did not show anything that would explain her symptoms. She states that she is not good about drinking fluids. She suspect she might be dehydrated. She does take a diuretic. No other complaints noted. History provided by: Patient fleet coordinator needed/used: no REVIEW OF SYSTEMS Constitutional: Negative for activity change, appetite change, chills, diaphoresis, fatigue and fever. HENT: Negative for congestion, ear pain, rhinorrhea and sore throat. Eyes: Negative for photophobia and visual disturbance. Respiratory: Negative for cough, chest tightness, shortness of breath and wheezing. Cardiovascular: Negative for chest pain, palpitations and leg swelling. Gastrointestinal: Negative for abdominal pain, diarrhea, nausea and vomiting. Genitourinary: Negative for dysuria. Musculoskeletal: Negative for back pain and neck pain. Skin: Negative for rash. Neurological: Positive for dizziness and light-headedness. Negative for tremors, seizures, syncope,facial asymmetry, speech difficulty, weakness, numbness, headaches and loss of balance. Psychiatric/Behavioral: Negative for confusion. OBJECTIVE Initial Vitals Temperature 05/03/24 0851 36.9 ??C Pulse Rate 05/03/24 0851 (!) 58 Heart Rate 05/03/24 0900 65 Resp Rate 05/03/24 0851 18 Blood Pressure 05/03/24 0851 136/63 SpO2 05/03/24 0851 98 % Pain Score 05/03/24 0852 0 - No pain PHYSICAL EXAMINATION Constitutional: Nursing note and vitals reviewed. Vital signs are normal. She is active. She does not appear ill. No distress. HENT: Head: Normocephalic and atraumatic. Mouth/Throat: Uvula is midline. Mucous membranes are dry. Eyes: Conjunctivae and lids are normal. Pupils are equal, round, and reactive to light. Neck: Phonation normal. Cardiovascular: Normal rate and regular rhythm. Pulmonary/Chest: Effort normal. No tachypnea. No respiratory distress. Musculoskeletal: Cervical back: No pain with movement. Neurological: Alert and oriented to person, place, and time. Normal speech. Skin: Skin is warm, dry and normal color. No rash noted. Psychiatric: She has a normal mood and affect. Relaxed. ASSESSMENT/PLAN Assessment and Plan Lupis Narayan is an 83-year-old female that presents with lightheadedness. She has had intermittent lightheadedness for the past month or so. She had a normal echocardiogram and a normal 48 hour Holter monitor recently. Her clinic blood work has been fairly normal also. She has not had any medication changes recently but she does take amlodipine, hydrochlorothiazide and ramipril. She believes she might be relatively dehydrated because she does not drink water much. On my exam she appears well although possibly mildly dehydrated. Vital signs are all fairly normal and she is not hypotensive or tachycardic. No neurologic deficits on exam. Her dizziness or lightheadedness is intermittent and I have low suspicion for posterior CVA. Her symptoms seem more presyncopal than vertiginous. She does not appear anemic. EKG did not show any acute abnormalities. No evidence of cardiac arrhythmia. She has not been sick recently. Labs are all fairly normal. On reassessment after the fluids shefeels somewhat improved. We discussed focusing on drinking fluids. She will hold her hydrochlorothiazide until she can schedule an appointment in clinic for recheck. I recommended that she come back to the emergency department if she worsens.. DIFFERENTIAL DIAGNOSES Dehydration, vertigo, stroke, anemia, viral illness, pneumonia, urinary tract infection, medicationadverse effect, BRET, ACS, cardiac arrhythmia, congestive heart failure. [facility] I reviewed the following external records: primary care records. ED Course as of 05/03/24 1050 Sun May 03, 2024 0845 ECG 12 Lead Christine - sinus bradycardia with right bundle branch block with no ST segment changes. T wave inversions in leads III, V1-V2. Normal QTC. 0928 Hemoglobin: 13.0 0928 Neutrophils: 4.09 0942 Comprehensive Metabolic Panel: Potassium, P 3.9 Sodium, P 137 Chloride, P 101 Bicarbonate, P 28 Anion Gap, P 8 BUN (Blood Urea Nitrogen), P 12 Creatinine 0.83 Estimated GFR (eGFR) 70 Calcium, Total, P 9.0 Glucose, P 114 Protein, Total, P 6.7 Albumin, P 3.7 Aspartate Aminotransferase (AST), P 17 Alkaline Phosphatase, P 81 Alanine Aminotransferase (ALT), P 17 Bilirubin, Total, P 0.5 0942 C-Reactive Protein (CRP), P: 3.2 Final Diagnoses: as of 05/03/24 10[facility] The following tests were considered but ultimately not performed: None. Escalation of care, including admission/observation, considered: None. My ECG interpretation is documented in ED Course. Chapo King P.A.-Felisha., P.A. 05/03/24 1052 TEACHER documented in this encounter Plan of Treatment Upcoming Encounters Date Type Department Care Team (Late st Contact Info) Description 05/11/2024 10:30 AM ELA TEACHER Comprehensive Visit Department of Physical Medicine and Rehabilitation in [address] [phone] Provider, Tina Vargas P.T. [address] [place] [address] [phone] documented as of this encounter Procedures Procedure Name Priority Date/Time Associated Diagnosis Comments CBC WITH DIFFERENTIAL, B STAT 05/03/2024 9:20 AM ELA TEACHER C-REACTIVE PROTEIN (CRP), S/P STAT 05/03/2024 9:20 AM ELA TEACHER COMPREHENSIVE METABOLIC PANEL, S/P STAT 05/03/2024 9:20 AM ELA TEACHER ECG STAT 05/03/2024 8:45 AM ELA TEACHER documented in this encounter Results * CRP (C-Reactive Protein) (05/03/2024 9:20 AM ELA TEACHER) C-Reactive Protein (CRP), P 3.2 <5.0 mg/L 05/03/2024 9:41 AM ELA TEACHER CNFL Blood (Blood, Venous) 05/03/2024 9:20 AM ELA TEACHER 05/03/2024 9:23 AM ELA TEACHER us Chapo King P.A.-C., P.A. LAB BLOOD ADD-ON F inal Result [facility] [address] [place] [phone], [facility] CNFL [facility] in [address] [address] * Comprehensive Metabolic Panel (05/03/2024 9:20 AM ELA TEACHER) Pathologist [facility] Potassium, P 3.9 3.6 - 5.2 mmol/L 05/03/2024 9:41 AM ELA TEACHER CNFL Sodium, P 137 135 - 145 mmol/L 05/03/2024 9:41 AM ELA TEACHER CNFL Chloride, P 101 98 - 107 mmol/L 05/03/2024 9:41 AM ELA TEACHER CNFL Bicarbonate, P 28 22 - 29 mmol/L 05/03/2024 9:41 AM ELA TEACHER CNFL Anion Gap, P 8 7 - 15 05/03/2024 9:41 AM ELA TEACHER CNFL BUN (Blood Urea Nitrogen), P 12 6 - 21 mg/dL 05/03/2024 9:41 AM ELA TEACHER CNFL Creatinine 0.83 0.59 - 1.04 mg/dL 05/03/2024 9:41 AM ELA TEACHER CNFL Estimated GFR (eGFR) 70 >=60 mL/min/BS A 05/03/2024 9:41 AM ELA TEACHER CNFL Comment: Estimated GFR calculated using the 2020 CKD_EPI creatinine equation. Calcium, Total, P 9.0 8.8 - 10.2 mg/dL 05/03/2024 9:41 AM ELA TEACHER CNFL Glucose, P 114 70 - 140 mg/dL 05/03/2024 9:41 AM ELA TEACHER CNFL Protein, Total, P 6.7 6.3 - 7.9 g/dL 05/03/2024 9:41 AM ELA TEACHER CNFL Albumin, P 3.7 3.5 - 5.0 g/dL 05/03/2024 9:41 AM ELA TEACHER CNFL Aspartate Aminotransferase (AST), P 17 8 - 43 U/L 05/03/2024 9:41 AM ELA TEACHER CNFL Alkaline Phosphatase, P 81 35 - 104 U/L 05/03/2024 9:41 AM ELA TEACHER CNFL Alanine Aminotransferase (ALT), P 17 7 - 45 U/L 05/03/2024 9:41 AM ELA TEACHER CNFL Bilirubin, Total, P 0.5 0.0 - 1.2 mg/dL 05/03/2024 9:41 AM ELA TEACHER CNFL Blood (Blood, Venous) 05/03/2024 9:20 AM ELA TEACHER 05/03/2024 9:23 AM ELA TEACHER us Chapo King P.A.-C., P.A. LAB BLOOD ADD-ON F inal Result [facility] [address] [place] [phone], [facility] CNFL [facility] [place] [address] * CBC with Differential, Blood (05/03/2024 9:20 AM ELA TEACHER) Hemoglobin 13.0 11.6 - 15.0 g/dL 05/03/2024 9:28 AM ELA TEACHER CNFL Hematocrit 38.2 35.5 - 44.9 % 05/03/2024 9:28 AM ELA TEACHER CNFL Erythrocytes 4.43 3.92 - 5.13 x10(12)/L 05/03/2024 9:28 AM ELA TEACHER CNFL MCV 86.2 78.2 - 97.9 fL 05/03/2024 9:28 AM ELA TEACHER CNFL RBC Distrib Width 12.9 12.2 - 16.1 % 05/03/2024 9:28 AM ELA TEACHER CNFL Platelet Count 269 157 - 371 x10(9)/L 05/03/2024 9:28 AM ELA TEACHER CNFL Leukocytes 6.4 3.4 - 9.6 x10(9)/L 05/03/2024 9:28 AM ELA TEACHER CNFL Neutrophils 4.09 1.56 - 6.45 x10(9)/L 05/03/2024 9:28 AM ELA TEACHER CNFL Lymphocytes 1.66 0.95 - 3.07 x10(9)/L 05/03/2024 9:28 AM ELA TEACHER CNFL Monocytes 0.47 0.26 - 0.81 x10(9)/L 05/03/2024 9:28 AM ELA TEACHER CNFL Eosinophils 0.17 0.03 - 0.48 x10(9)/L 05/03/2024 9:28 AM ELA TEACHER CNFL Basophils <0.04 0.01 - 0.08 x10(9)/L 05/03/2024 9:28 AM ELA TEACHER CNFL Blood (Blood, Venous) 05/03/2024 9:20 AM ELA TEACHER 05/03/2024 9:23 AM ELA TEACHER Chapo King P.A.-C., P.A. LAB BLOOD ADD-ON F inal Result Performing Organization Address [facility] Co de Phone Number [facility] [address] [place] [phone], [facility] in [address] [address] * ECG 12 Lead (05/03/2024 8:45 AM ELA TEACHER) Ventricular Rate ECG/Min 59 BPM MUSE VA Interval 216 ms MUSE QRSD Interval 136 ms MUSE QT Interval 474 ms MUSE QTC Interval 469 ms MUSE P [place] 30 degrees MUSE R [place] -43 degrees MUSE T Wave [place] -16 degrees MUSE 05/03/2024 8:45 AM ELA TEACHER 05/04/2024 8:15 AM ELA TEACHER Impressions MUSE - 05/03/2024 9:14 AM ELA TEACHER Sinus bradycardia with 1st degree A-V block Low lateral forces Low voltage QRS in chest leads Left axis deviation Right bundle branch block with secondary ST-T abnormalities Nonspecific T wave abnormality When compared with ECG of 03-Jul-2023 08:40, VA interval has increased Reviewed by ANGELA Cordero Narrative Procedure Note Constantine Elder M.D. - 05/04/2024 IMPRESSION: Sinus bradycardia with 1st degree A-V block Low lateral forces Low voltage QRS in chest leads Left axis deviation Right bundle branch block with secondary ST-T abnormalities Nonspecific T wave abnormality When compared with ECG of 03-Jul-2023 08:40, VA interval has increased Reviewed by ANGELA Cordero Chapo Knig P.A.-C., P.A. ECG ORDERABLES Ed ited Result - Final Performing Organization Address [facility] Co de Phone Number MUSE NA documented in this encounter Visit Diagnoses Diagnosis Lightheadedness- Primary documented in this encounter Administered Medications Inactive Administered Medications - up to 3 most recent administrations Medication Order MAR Action Action Date Dose Rate Site NaCl 0.9 % bolus 1,000 mL 1,000 mL, intravenous, at 1,000 mL/hr, Administer over 1 Hours, Once, On 05/03/24 at 0916, For 1 dose New Bag 05/03/2024 9:24 AM ELA TEACHER 1,000 mL 1000 mL/hr documented in this encounter Active and Recently Administered Medications Times are shown in ELA TEACHER. Scheduled Medication Order 05/01/2024 05/02/2024 05/03/2024 NaCl 0.9 % bolus 1,000 mL (COMPLETED) 1,000 mL, intravenous, at 1,000 mL/hr, Administer over 1 Hours, Once, On 05/03/24 at 0916, For 1 dose 0924 (New Bag - Prov ider: Guerita Lacey R.N.)[phone] (Stopped - Provider: Guerita Lacey R.N.) documented in this encounter Additional Health Concerns Assessment Noted Time PHQ-9 Depression Total Score: 0 08/04/19 11 9:50 AM CDT documented as of this encounter Care Teams Social Media Campaign Manager Relationship Specialty Start Date End Date Elsewhere, Pcp PCP - General Internal Medicine 09/01/18 documented as of this encounter
[2024-05-08 16:33] LABS: Slide Review Reflex No
[2024-05-08 16:34] LABS: Albumin* 4.6 g/dL (3.3-5.0)
[2024-05-08 16:35] LABS: Chloride* 98 mmol/L (96-114); Sodium* 133 mmol/L (135-149)
[2024-05-08 16:37] LABS: Bilirubin Total* 0.7 mg/dL (0.1-1.5); Creatinine* 0.8 mg/dL (0.5-1.5); Est. Creatinine Clearance* 36.81; Estimated Glomerular Filt Rate 73 ml/min
[2024-05-08 16:38] LABS: Alanine Aminotransferase* 19 U/L (4-35); Alkaline Phosphatase* 84 U/L (40-150); Anion Gap 8 mEq/L (7-15); Aspartate Amino Transferase* 20 U/L (12-35); Blood Urea Nitrogen* 14 mg/dL (7-30); Calcium* 9.8 mg/dL (8.4-10.6); Carbon Dioxide* 27 mmol/L (20-32); Glucose* 103 mg/dL (60-115); Total Protein* 7.4 g/dL (6.0-8.3)
[2024-05-08 16:48] LABS: Magnesium* 2.1 mg/dL (1.5-2.6)
--- NOTE | 2024-05-08 17:49 | CRLHL7_ITS ---
For Patients: As a result of the Century Cures Act, medical imaging exams and procedure reports are released immediately into your electronic medical record. You may view this report before your referring provider. If you have questions, please contact your health care provider. CLINICAL HISTORY: Vertigo. TECHNIQUE: Standard helical CT image acquisition through the head following the administration of intravenous contrast was performed. 3D and MIP reconstructions were performed at a separate workstation and permanently archived. COMPARISON: None available. FINDINGS: No intracranial proximal large vessel occlusion or flow-limiting luminal stenosis. No evidence of cerebral aneurysm. No findings to suggest an arterial-venous shunting lesion. IMPRESSION: No intracranial proximal large vessel occlusion, flow-limiting luminal stenosis, or cerebral aneurysm. Please note that all CT scans at this facility use dose modulation, iterative reconstruction, and/or weight-based dosing when appropriate to reduce radiation dose to as low as reasonably achievable. Dictated by David Paz MD @ 05/09/2024 11:31:58 AM (Electronically Signed)
--- NOTE | 2024-05-08 17:49 | CRLHL7_ITS ---
For Patients: As a result of the Century Cures Act, medical imaging exams and procedure reports are released immediately into your electronic medical record. You may view this report before your referring provider. If you have questions, please contact your health care provider. CLINICAL HISTORY: Vertigo. TECHNIQUE: Standard helical CT image acquisition through the neck was performed after intravenous contrast bolus enhancement. 3D and MIP reconstructions were performed at a separate workstation and permanently archived. COMPARISON: None available. FINDINGS: The origins of the great vessels from the aortic arch are patent. The common carotid arteries are patent. No significant luminal stenoses of the proximal ICAs by NASCET criteria. The more distal cervical segments of the ICAs are patent. The origins and cervical segments of the vertebral arteries are patent. Multiple hypodense nodules in the right lobe of the thyroid gland measuring up to 1.2cm. There are two pulmonary nodules in the left upper lobe measuring approximately 5mm. IMPRESSION: 1. Patent cervical arterial vasculature without hemodynamically significant luminal stenosis. 2. Two pulmonary nodules in the left upper lobe measuring approximately 5mm. A follow-up chest CT examination in approximately 12 months could be considered. Please note that all CT scans at this facility use dose modulation, iterative reconstruction, and/or weight-based dosing when appropriate to reduce radiation dose to as low as reasonably achievable. Dictated by David Paz MD @ 05/09/2024 11:29:18 AM (Electronically Signed)
[2024-05-08] MEDS: diazePAM 5 MG TABLET 2.5 MG PO (18:02)
[2024-05-08] MEDS: 0.9 % SODIUM CHLORIDE 500 ML 500 ML IV (18:03)
== END 2024-05-08 19:55 | disposition home or self-care (01) ==
PROVIDERS: Emergency Provider Family Medicine; PCP Nurse Practitioner Family
DX: H81.21 Vestibular neuronitis, right ear (principal)
CPT/HCPCS: 36415; 70450; 70496; 70498; 80053; 83735; 84443; 85025; 93005; 94761; 99285; J7030; Q9967